=== PATIENT | female | born 1955 | race Caucasian/White ===

== ENCOUNTER 2017-01-02 02:51 | Inpatient (IN) | payer MEDICARE, OTHER ==
[~2017-01-02] VITALS: Ht 162.6 cm; Wt 85.7 kg
[2017-01-02] MEDS ORDERED: MORP15TA3 PO (03:24)
[2017-01-02] MEDS ORDERED: ATORVASTATIN CA80 MG PO (03:24)
[2017-01-02] MEDS ORDERED: BUPR150T15 PO (03:24)
[2017-01-02] MEDS ORDERED: LORA-434 PO (03:24)
[2017-01-02] MEDS ORDERED: INSU100I17 SQ (03:24)
[2017-01-02] MEDS ORDERED: LEVO100T5 PO (03:24)
[2017-01-02] MEDS ORDERED: IPRA4AER INH (03:24)
[2017-01-02] MEDS ORDERED: NEBI10TA3 PO (03:24)
[2017-01-02] MEDS ORDERED: FURO-69 PO (03:24)
[2017-01-02] MEDS ORDERED: XOPENEX HFA15 GM IH (03:24)
[2017-01-02] MEDS ORDERED: DOCU100C28 PO (03:24)
[2017-01-02] MEDS ORDERED: NITR0.4T SL (03:24)
[2017-01-02] MEDS ORDERED: CLOP75TA57 PO (03:24)
[2017-01-02] MEDS ORDERED: PROM25TA10 PO (03:24)
[2017-01-02] MEDS ORDERED: INSU100I13 SQ (03:24)
[2017-01-02] MEDS ORDERED: PANT40TA5 PO (03:24)
[2017-01-02] MEDS ORDERED: FERR-26 PO (03:24)
[2017-01-02] MEDS ORDERED: MAGN400T22 PO (03:24)
[2017-01-02] MEDS ORDERED: METHYL SALICYLATE/MENTHOL TOPICAL OINTMENT 29GM TUBE. TP PRN (03:45)
[2017-01-02] MEDS ORDERED: ACETAMINOPHEN 325 MG TABLET PO PRN (03:45)
[2017-01-02] MEDS ORDERED: MAG HYDROX/AL HYDROX/SIMETH 30 ML ORAL.SUSP PO PRN (03:45)
[2017-01-02 03:50] VITALS: BP 130/52
[2017-01-02] MEDS ORDERED: NON FORMULARY ITEM (Ipratropium/Albuterol Sulfate (Combivent Respimat Inhal) 1 PUFF) INH PRN (04:00)
[2017-01-02] MEDS ORDERED: ALBUTEROL SULFATE 2.5 MG/3 ML NEBU. NEB PRN (04:00)
[2017-01-02] MEDS ORDERED: NITROGLYCERIN SUBLINGUAL 0.4 MG BOTTLE OF 25. SL PRN (04:00)
[2017-01-02] MEDS ORDERED: NON FORMULARY ITEM (Levalbuterol Tartrate (Xopenex Hfa) 2 PUFF) IH PRN (04:00)
[2017-01-02] MEDS: LORazepam 1 MG TABLET PO PRN (04:32)
[2017-01-02] MEDS: LEVOTHYROXINE 100 MCG TABLET PO SCH (06:11)
[2017-01-02 06:33] VITALS: BP 117/48
[2017-01-02 06:59] LABS: AMORPHOUS SEDIMENT,UR PRESENT /HPF; BACTERIA,URINE FEW /HPF (0-FEW); BILIRUBIN,URINE NEG (NEG); CLARITY,URINE CLOUDY; COLOR,URINE YELLOW; GLUCOSE,URINE NEG (NEG); NITRITE,URINE NEG (NEG); RBC,URINE OCC /HPF (0-2); SQUAMOUS EPITHELIAL CELL,UR MANY /LPF; UROBILINOGEN,URINE 0.2 mg/dL (0.2 mg/dL)
[2017-01-02 07:23] LABS: BARBITURATES NEG (NEG); BENZODIAZEPINES NEG (NEG); CANNABINOIDS NEG (NEG); COCAINE NEG (NEG); METHADONE NEG (NEG); OPIATES POS (NEG); PHENCYCLIDINE NEG (NEG)
[2017-01-02 07:24] LABS: AMPHETAMINE/METHAMPHETAMINE NEG (NEG)
[2017-01-02] MEDS: IPRATRPIUM/ALBUTEROL 0.5/2.5MG 3 ML NEBU. NEB SCH ×2 (08:00→18:54)
[2017-01-02] MEDS ORDERED: MORPHINE ER 15 MG TABLET.ER PO SCH (09:00)
[2017-01-02] MEDS: CLOPIDOGREL BISULFATE 75 MG TABLET PO SCH (10:04)
[2017-01-02] MEDS: buPROPion XL 150 MG TAB.ER.24H PO SCH (10:04)
[2017-01-02] MEDS: DOCUSATE SODIUM 100 MG CAPSULE PO SCH ×2 (10:04→20:10)
[2017-01-02] MEDS: PANTOPRAZOLE 40 MG TABLET. PO SCH ×2 (10:04→17:58)
[2017-01-02] MEDS: MAGNESIUM OXIDE 400 MG TABLET PO SCH ×2 (10:04→20:25)
[2017-01-02] MEDS: FERROUS SULFATE 325 MG TABLET PO SCH (10:05)
[2017-01-02] MEDS: INSULIN ASPART 300 UNITS/3 ML INSULN.PEN SQ SCH ×3 (10:07→17:59)
[2017-01-02] MEDS: METOPROLOL TART IMMED RELEASE 50 MG TABLET PO SCH ×2 (10:11→20:11)
[2017-01-02 16:20] VITALS: BP 139/74
--- NOTE | 2017-01-02 20:11 | PDOC ---
Exam Clinton Demential Exam: Clinton Note: Please also refer to the separate dictated note~for this date of service dictated separately.~Patient seen individually. Discussed the patient with Nursing staff reviewed the chart.~Reviewed interim history and current functioning. Reviewed vital signs,~Labs/ Radiology~and current medications noted below. Continue current treatment with the changes noted in the dictated addendum note Assessment: Vital Signs: Vital Signs Date Time Temp Pulse Resp B/P (MAP) Pulse Ox O2 Delivery O2 Flow Rate FiO2 01/02/17 18:58 97 Room Air 01/02/17 16:20 97.4 70 18 139/74 (95) I&O Intake and Output 01/02/17 07:00 Intake Total 200 ml Balance 200 ml Intake Oral 200 ml # Voids 1 # Bowel Movements 1 Labs: Laboratory Tests Test 01/02/17 06:35 Urine Collection Type Unknown Urine Color Yellow Urine Clarity Cloudy Urine pH 6.0 Urine Specific [place] 1.020 Urine Protein 30 mg/dl (NEG-TRACE) Urine Glucose (UA) Neg mg/dL (NEG) Urine Ketones (Stick) Neg mg/dL (NEG) Urine Blood Neg (NEG) Urine Nitrite Neg (NEG) Urine Bilirubin Neg (NEG) Urine Urobilinogen Dipstick 0.2 mg/dL (0.2 mg/dL) Urine Leukocyte Esterase Small (NEG) Urine RBC Occ /HPF (0-2) Urine WBC 5-10 /HPF (0-4) Urine Squamous Epithelial Cells Many /LPF Urine Amorphous Sediment Present /HPF Urine Bacteria Few /HPF (0-FEW) Urine Opiates Screen Pos (NEG) Urine Methadone Screen Neg (NEG) Urine Barbiturates Neg (NEG) Urine Phencyclidine Screen Neg (NEG) Urine Amphetamine/Methamphetamine Neg (NEG) Urine Benzodiazepines Screen Neg (NEG) Urine Cocaine Screen Neg (NEG) Urine Cannabinoids Screen Neg (NEG) Urine Ethyl Alcohol Neg (NEG) Current Medications: Meds: Current Medications Acetaminophen (Tylenol) 650 mg PRN Q6HRS PRN PO MILD PAIN / TEMP; Start at 03:45 Multi-Ingredient Ointment (Analgesic Arnold) 1 urmila PRN QID PRN TP MUSCLE PAIN; Start 01/02/17 at 03:45 Al Hydroxide/Mg Hydroxide (Mylanta Plus Xs) 15 ml PRN AFTMEALHC PRN PO DYSPEPSIA; Start 01/02/17 at 03:45 Magnesium Hydroxide (Milk Of Magnesia) 2,400 mg PRN QHS PRN PO CONSTIPATION; Start 01/02/17 at 03:45 Bupropion HCl (Wellbutrin Xl) 150 mg DAILY PO Last administered on 01/02/17 10 :04; Start 01/02/17 at 09:00 Lorazepam (Ativan) 1 mg PRN BID PRN PO ANXIETY / AGITATION Last administered on 01/02/17 04:32; Start 01/02/17 at 03:45 Clopidogrel Bisulfate (Plavix) 75 mg DAILY PO Last administered on 01/02/17 10 :04; Start 01/02/17 at 09:00 Docusate Sodium (Colace) 100 mg BID PO Last administered on 01/02/17 10:04; Start 01/02/17 at 09:00 Ferrous Sulfate (Feosol) 325 mg DAILY PO Last administered on 01/02/17 10:05; Start 01/02/17 at 09:00 Furosemide (Lasix) 20 mg 3X/WEEK PO ; Start 01/03/17 at 09:00 Insulin Aspart (Novolog) 12 units TIDAC SQ Last administered on 01/02/17 17:59 ; Start 01/02/17 at 07:30 Levothyroxine Sodium (Synthroid) 100 mcg DAILY06 PO Last administered on 06:11; Start 01/02/17 at 06:00 Magnesium Oxide (Magnesium Oxide) 400 mg BID PO Last administered on 01/02/17 10:04; Start 01/02/17 at 09:00 Morphine Sulfate (Ms Contin) 15 mg BID PO Last administered on 01/02/17 10:04 ; Start 01/02/17 at 09:00; Stop 01/02/17 at 18:42; Status DC Nitroglycerin (Nitrostat) 0.4 mg PRN 1X PRN SL CHEST PAIN; Start 01/02/17 at 04 :00 Pantoprazole Sodium (Protonix) 40 mg BIDBFRMEAL PO Last administered on 17:58; Start 01/02/17 at 07:30 Promethazine HCl (Phenergan) 25 mg PRN BID PRN PO NAUSEA/VOMITING; Start at 04:00 Atorvastatin Calcium (Lipitor) 80 mg QHS PO ; Start 01/02/17 at 21:00 Insulin Detemir (Levemir) 28 units QHS SQ ; Start 01/02/17 at 21:00 Non-Formulary Medication 1 puff PRN BID PRN INH SHORTNESS OF BREATH; Start at 04:00; Status UNV Non-Formulary Medication 2 puff PRN TID PRN IH SHORTNESS OF BREATH; Start 01/02 at 04:00; Status UNV Metoprolol Tartrate (Lopressor) 50 mg BID PO Last administered on 01/02/17 10: 11; Start 01/02/17 at 09:00 Albuterol/ Ipratropium (Duoneb) 3 ml RTBID NEB Last administered on 01/02/17 18:54; Start 01/02/17 at 08:00 Albuterol Sulfate (Ventolin) 2.5 mg PRN Q6HRS PRN NEB SHORTNESS OF BREATH; Start 01/02/17 at 04:00 Morphine Sulfate (Ms Contin) 15 mg HS PO ; Start 01/02/17 at 21:00 Active Scripts Active Reported Novolog Flexpen (Insulin Aspart) 100 Unit/1 Ml Insuln.pen 12 Unit SQ TIDAC Ativan (Lorazepam) 1 Mg Tablet 1 Mg PO PRN BID PRN Wellbutrin Xl (Bupropion Hcl) 150 Mg Tab.er.24h 150 Mg PO DAILY Promethazine Hcl 25 Mg Tablet 25 Mg PO PRN BID PRN Bystolic (Nebivolol Hcl) 10 Mg Tablet 10 Mg PO DAILY Atorvastatin Calcium 80 Mg Tablet 80 Mg PO QHS Pantoprazole Sodium 40 Mg Tablet.dr 40 Mg PO BIDBFRMEAL Plavix (Clopidogrel Bisulfate) 75 Mg Tablet 75 Mg PO DAILY Levothyroxine Sodium 100 Mcg Tablet 100 Mcg PO DAILY06 Docusate Sodium 100 Mg Capsule 100 Mg PO BID Nitrostat (Nitroglycerin) 0.4 Mg Tab.subl 0.4 Mg SL PRN 1X PRN Ferrous Sulfate 325 Mg Tablet 325 Mg PO DAILY Combivent Respimat Inhal (Ipratropium/Albuterol Sulfate) 4 Gm Aer.w.adap 1 Puff INH PRN BID PRN Xopenex Hfa (Levalbuterol Tartrate) 15 Gm Hfa.aer.ad 2 Puff IH PRN TID PRN Mag-Oxide (Magnesium Oxide) 400 Mg Tablet 400 Mg PO BID Lantus Solostar (Insulin Glargine,Hum.rec.anlog) 100 Unit/1 Ml Insuln.pen 28 Unit SQ QHS MERVIN CEE MD January 02, 2017 20:11
[2017-01-02] MEDS: MORPHINE ER 15 MG TABLET.ER PO SCH (20:22)
[2017-01-02] MEDS: ATORVASTATIN CALCIUM 20 MG TABLET PO SCH (20:22)
[2017-01-02] MEDS: INSULIN DETEMIR 300 UNITS/3 ML INSULN.PEN. SQ SCH (21:01)
--- NOTE | 2017-01-02 23:23 | HP ---
ADMIT DATE: 01/02/2017 IDENTIFYING DATA: The patient is a 61-year-old female referred to us from the [facility] Emergency Room on account of increasing hallucinations, incoherence, delusions after the patient walked into the living room, naked, mumbling incoherently. She has been in outpatient psychiatric treatment at [facility] and has failed this. She has been using MS Contin 50 mg twice a day and at one point was using up to 90 mg a day and there is a question whether this is contributing to her change in mental status. CHIEF COMPLAINT: "I need to come off my morphine. I have severe arthritis pain." HISTORY OF PRESENT ILLNESS: The patient was initially presented to me from the Emergency Room at [facility] by the patient's daughter, Shahrzad, who is in fact the nurse on the unit. The patient presented to the ER, quite confused, hallucinating, delusional. CT head was unremarkable. Rest of the labs were unremarkable and nothing to account for the change in mental status. There is a question raised of dementia, but in fact at the time of my evaluation today, the patient is very cognitively intact and coherent. She has been using fairly high dosages of morphine to control her arthritic pain, however, and it appears this has been causing psychotic symptoms. No clear suicidal or homicidal ideation. She does have a history of depression and has been on Wellbutrin for some time and did very poorly on Cymbalta and had been on other SSRIs as well at certain points. PAST PSYCHIATRIC HISTORY: As above. MEDICAL HISTORY: Pain secondary to chronic arthritis, coronary artery disease, hypertension, GERD, fibromyalgia, carpal tunnel syndrome, neuropathy, status post coronary artery bypass graft, status post [place]. Hypothyroidism. CODE STATUS: DNR. ALLERGIES: CEPHALOSPORINS, TIDE LAUDRY SOAP, BUTORPHANOL, DIAZEPAM, CYMBALTA, NEURONTIN, IODINE, LATEX, SHELLFISH. FAMILY HISTORY: Positive for bipolar disorder in 2 of her adult children. SOCIAL HISTORY: The patient lives at home alone. She does not drive due to a reported diagnosis of seizure disorder and her general health. No alcohol, drug abuse, physical, sexual or elder abuse history noted. She is not known to be perfect ____. MENTAL STATUS EXAM: The patient was seen individually evening of 01/02/2017. She is oriented reasonably well. Speech coherent. Abstraction fair, computation somewhat impaired, language function intact, attention span short. Mood and affect somewhat anxious. No active suicidal or homicidal ideation. CURRENT PSYCHOTROPICS: Wellbutrin-XL 150 mg a day, Ativan 1 mg b.i.d. p.r.n. She is on MS Contin 15 mg b.i.d., which was changed per Dr. Oden to 15 mg a day. PHYSICAL EXAMINATION: VITAL SIGNS: Temperature 97.4, pulse 70, BP 139/74. REVIEW OF SYSTEMS: No CV, , pulmonary, eye system symptoms on review. IMPRESSION: Major depressive disorder, delirium secondary to general medical condition/usage of MS Contin; anxiety disorder, unspecified; cognitive disorder, unspecified. Rest of diagnoses as above. PLAN: Admit to the Geropsychiatry unit at [facility]. I will see the patient daily individually from a psychiatric standpoint. Medical followup per Dr. Castro/Dr. Blankenship. Continue the patient on current psychotropics, reduce the MS Contin further as determined per Dr. Oden/Dr Blankenship/Dr Castro. May consider changing Wellbutrin to Savella for an alternate antidepressants, but we will see how she does initially with the taper of the MS Contin. MERVIN CEE MD DR: CHASITY/micki JOB#: [id number] / [id number]
[2017-01-03] MEDS: LORazepam 1 MG TABLET PO PRN ×2 (00:15→02:45)
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
[2017-01-03] MEDS: LEVOTHYROXINE 100 MCG TABLET PO SCH (06:13)
[2017-01-03 06:36] VITALS: BP 123/58
[2017-01-03 06:39] LABS: BASO % 0 % (0-3); EOS # 0.2 x10^3/uL (0.0-0.7); EOS % 3 % (0-3); HEMATOCRIT 28.9 % (36.0-47.0); HEMOGLOBIN 9.6 g/dL (12.0-15.5); LYMPH # 2.2 x10^3/uL (1.0-4.8); LYMPH % 32 % (24-48); MEAN CORPUSCULAR HEMOGLOBIN 30 pg (25-35); MEAN CORPUSCULAR HGB CONC 33 g/dL (31-37); MEAN CORPUSCULAR VOLUME 90 fL (79-100); MONO # 0.7 x10^3/uL (0.0-1.1); MONO % 11 % (0-9); NEUT # 3.6 x10^3uL (1.8-7.7); NEUT % 54 % (31-73); PLATELET COUNT 212 x10^3/uL (140-400); RED BLOOD COUNT 3.21 x10^6/uL (3.50-5.40); RED CELL DISTRIBUTION WIDTH 14.2 % (11.5-14.5); WHITE BLOOD COUNT 6.7 x10^3/uL (4.0-11.0)
[2017-01-03 06:55] LABS: ALBUMIN 2.7 g/dL (3.4-5.0); ALBUMIN/GLOBULIN RATIO 0.7 (1.0-1.7); CALCIUM 8.6 mg/dL (8.5-10.1); CREATININE 1.2 mg/dL (0.6-1.0); GFR 45.8; MAGNESIUM 1.8 mg/dL (1.8-2.4); POTASSIUM 3.7 mmol/L (3.5-5.1); TOTAL BILIRUBIN 0.4 mg/dL (0.2-1.0); TOTAL PROTEIN 6.6 g/dL (6.4-8.2)
[2017-01-03] MEDS ORDERED: cloNIDine HCL 0.1 MG TABLET PO PRN (07:30)
[2017-01-03] MEDS: CLOPIDOGREL BISULFATE 75 MG TABLET PO SCH (08:37)
[2017-01-03] MEDS: MAGNESIUM OXIDE 400 MG TABLET PO SCH ×2 (08:37→19:25)
[2017-01-03] MEDS: PANTOPRAZOLE 40 MG TABLET. PO SCH ×2 (08:37→17:15)
[2017-01-03] MEDS: buPROPion XL 150 MG TAB.ER.24H PO SCH (08:37)
[2017-01-03] MEDS: DOCUSATE SODIUM 100 MG CAPSULE PO SCH ×2 (08:37→19:24)
[2017-01-03] MEDS: FERROUS SULFATE 325 MG TABLET PO SCH (08:37)
[2017-01-03] MEDS: METOPROLOL TART IMMED RELEASE 50 MG TABLET PO SCH ×2 (08:39→19:25)
[2017-01-03] MEDS: FUROSEMIDE 20 MG TABLET PO SCH (08:39)
[2017-01-03] MEDS: INSULIN ASPART 300 UNITS/3 ML INSULN.PEN SQ SCH ×4 (08:42→17:20)
[2017-01-03] MEDS: IPRATRPIUM/ALBUTEROL 0.5/2.5MG 3 ML NEBU. NEB SCH ×2 (11:00→20:00)
[2017-01-03 13:50] LABS: THYROID STIM HORMONE (TSH) 6.49 uIU/mL (0.358-3.740)
[2017-01-03 16:13] VITALS: BP 163/61
[2017-01-03 17:10] LABS: T3 TOTAL 66 ng/dL (71-180); THYROXINE 5.7 ug/dL (4.5-12.0)
[2017-01-03] MEDS: ATORVASTATIN CALCIUM 20 MG TABLET PO SCH (19:24)
[2017-01-03] MEDS: MORPHINE ER 15 MG TABLET.ER PO SCH (19:26)
[2017-01-03] MEDS: INSULIN DETEMIR 300 UNITS/3 ML INSULN.PEN. SQ SCH (19:27)
--- NOTE | 2017-01-03 20:41 | ACF ---
Admission Criteria Forms PSYCHIATRIC DISORDERS Clinical Indications for Inpatient Care (Place 'X' for any and all applicable criteria): Ongoing inpatient care may be needed for ANY ONE of the following(1)(2)(3)(4)(6) (7)(8): [ ]I. Danger to self or others not manageable at lower level of care. [ ]II. Grave disability (eg, inability to perform self care necessary at lower level of care) [ ]III. Agitation or inappropriate behavior interfering with care for primary condition (eg, attempting to discontinue lines or drains prematurely, unable to cooperate with respiratory care) [X ]IV. Severe disability or disorder indicated by ALL of the following: [X ]a) Severe behavioral health disorder-related symptoms or condition indicated by ANY ONE of the following: [ ]i) Severe problem with cognition, memory, judgment, or impulse control [X ]ii) Severe clinical manifestations (eg, hallucinations , delusions, other acute psychotic symptoms, michelle, extreme agitation or anxiety) [X ]b) Patient management at lower level of care is not feasible until acute intervention or modification is initiated. Extended stay beyond goal length of stay for the primary condition may be indicated when ANY ONE of the following is present: (1)(2)(3)(4): [ ]a) Patient is a danger to self or others and not manageable at lower level of care. [ ]b) Behavior crisis management, including physical or chemical restraints, is required and is not available at a lower level of care. [ ]c) Behavioral symptoms (e.g., agitation, somnolence, inappropriate behavior) are present, and are not manageable at a lower level of care. [ ]d) Patient cannot understand follow-up treatment and crisis plan. [ ]e) Provider and supports are not sufficiently available at lower level of care. [ ]f) Patient cannot participate (e.g., verify absence of plan for harm) and is in needed of monitoring. The original [facility] [employer] content created by [facility] [employer] has been revised. The portions of the content which have been revised are identified through the use of italic text or in bold, and [facility] has neither reviewed nor approved the modified material. All other unmodified content is copyright [facility]. Please see references footnoted in the original [facility] edition 2016 Admission Criteria Met?: Yes NAYELI BAUM January 03, 2017 20:41
--- NOTE | 2017-01-03 21:07 | PDOC ---
Exam Clinton Demential Exam: Clinton Note: Please also refer to the separate dictated note~for this date of service dictated separately.~Patient seen individually. Discussed the patient with Nursing staff reviewed the chart.~Reviewed interim history and current functioning. Reviewed vital signs,~Labs/ Radiology~and current medications noted below. Continue current treatment with the changes noted in the dictated addendum note Assessment: Vital Signs: Vital Signs Date Time Temp Pulse Resp B/P (MAP) Pulse Ox O2 Delivery O2 Flow Rate FiO2 01/03/17 19:26 Room Air 01/03/17 19:25 61 163/61 01/03/17 16:13 98.0 16 95 I&O Intake and Output 01/03/17 07:00 Intake Total 1540 ml Balance 1540 ml Intake Oral 1540 ml Labs: Laboratory Tests Test 01/03/17 06:22 01/03/17 07:15 01/03/17 11:21 01/03/17 16:51 White Blood Count 6.7 x10^3/uL (4.0-11.0) Red Blood Count 3.21 x10^6/uL (3.50-5.40) L Hemoglobin 9.6 g/dL (12.0-15.5) L Hematocrit 28.9 % (36.0-47.0) L Mean Corpuscular Volume 90 fL (79-100) Mean Corpuscular Hemoglobin 30 pg (25-35) Mean Corpuscular Hemoglobin Concent 33 g/dL (31-37) Red Cell Distribution Width 14.2 % (11.5-14.5) Platelet Count 212 x10^3/uL (140-400) Neutrophils (%) (Auto) 54 % (31-73) Lymphocytes (%) (Auto) 32 % (24-48) Monocytes (%) (Auto) 11 % (0-9) H Eosinophils (%) (Auto) 3 % (0-3) Basophils (%) (Auto) 0 % (0-3) Neutrophils # (Auto) 3.6 x10^3uL (1.8-7.7) Lymphocytes # (Auto) 2.2 x10^3/uL (1.0-4.8) Monocytes # (Auto) 0.7 x10^3/uL (0.0-1.1) Eosinophils # (Auto) 0.2 x10^3/uL (0.0-0.7) Basophils # (Auto) 0.0 x10^3/uL (0.0-0.2) Sodium Level 143 mmol/L (136-145) Potassium Level 3.7 mmol/L (3.5-5.1) Chloride Level 108 mmol/L (98-107) H Carbon Dioxide Level 24 mmol/L (21-32) Anion Gap 11 (6-14) Blood Urea Nitrogen 20 mg/dL (7-20) Creatinine 1.2 mg/dL (0.6-1.0) H Estimated GFR (Cockcroft-Gault) 45.8 BUN/Creatinine Ratio 17 (6-20) Glucose Level 94 mg/dL (70-99) Calcium Level 8.6 mg/dL (8.5-10.1) Magnesium Level 1.8 mg/dL (1.8-2.4) Iron Level 23 ug/dL (50-170) L Total Iron Binding Capacity 328 ug/dL (250-450) Iron Saturation 7 % (15-34) L Total Bilirubin 0.4 mg/dL (0.2-1.0) Aspartate Amino Transferase (AST) 22 U/L (15-37) Alanine Aminotransferase (ALT) 30 U/L (14-59) Alkaline Phosphatase 123 U/L (46-116) H Total Protein 6.6 g/dL (6.4-8.2) Albumin 2.7 g/dL (3.4-5.0) L Albumin/Globulin Ratio 0.7 (1.0-1.7) L Triglycerides Level 93 mg/dL (0-150) Cholesterol Level 70 mg/dL (0-200) LDL Cholesterol, Calculated 25 mg/dL (0-100) VLDL Cholesterol, Calculated 18 mg/dL (0-40) Non-HDL Cholesterol Calculated 43 mg/dL (0-129) HDL Cholesterol 27 mg/dL (40-60) L Cholesterol/HDL Ratio 2.0 Vitamin B12 Level 594 pg/mL (247-911) 25-Hydroxy Vitamin D Total Pending Thyroid Stimulating Hormone (TSH) 6.490 uIU/mL (0.358-3.740) Thyroxine (T4) 5.7 ug/dL (4.5-12.0) Total Triiodothyronine (TT3) 66 ng/dL (71-180) L RPR Titer Additional Testing Pending Glucose (Fingerstick) 93 mg/dL (70-99) 189 mg/dL (70-99) H 137 mg/dL (70-99) H Test 01/03/17 19:22 Glucose (Fingerstick) 216 mg/dL (70-99) H Current Medications: Meds: Current Medications Acetaminophen (Tylenol) 650 mg PRN Q6HRS PRN PO MILD PAIN / TEMP; Start at 03:45 Multi-Ingredient Ointment (Analgesic Arjay) 1 urmila PRN QID PRN TP MUSCLE PAIN; Start 01/02/17 at 03:45 Al Hydroxide/Mg Hydroxide (Mylanta Plus Xs) 15 ml PRN AFTMEALHC PRN PO DYSPEPSIA; Start 01/02/17 at 03:45 Magnesium Hydroxide (Milk Of Magnesia) 2,400 mg PRN QHS PRN PO CONSTIPATION; Start 01/02/17 at 03:45 Bupropion HCl (Wellbutrin Xl) 150 mg DAILY PO Last administered on 01/03/17 08 :37; Start 01/02/17 at 09:00 Lorazepam (Ativan) 1 mg PRN BID PRN PO ANXIETY / AGITATION Last administered on 01/03/17 02:45; Start 01/02/17 at 03:45 Clopidogrel Bisulfate (Plavix) 75 mg DAILY PO Last administered on 01/03/17 08 :37; Start 01/02/17 at 09:00 Docusate Sodium (Colace) 100 mg BID PO Last administered on 01/03/17 19:24; Start 01/02/17 at 09:00 Ferrous Sulfate (Feosol) 325 mg DAILY PO Last administered on 01/03/17 08:37; Start 01/02/17 at 09:00 Furosemide (Lasix) 20 mg 3X/WEEK PO Last administered on 01/03/17 08:39; Start 01/03/17 at 09:00 Insulin Aspart (Novolog) 12 units TIDAC SQ Last administered on 01/03/17 17:20 ; Start 01/02/17 at 07:30 Levothyroxine Sodium (Synthroid) 100 mcg DAILY06 PO Last administered on 06:13; Start 01/02/17 at 06:00 Magnesium Oxide (Magnesium Oxide) 400 mg BID PO Last administered on 01/03/17 19:25; Start 01/02/17 at 09:00 Morphine Sulfate (Ms Contin) 15 mg BID PO Last administered on 01/02/17 10:04 ; Start 01/02/17 at 09:00; Stop 01/02/17 at 18:42; Status DC Nitroglycerin (Nitrostat) 0.4 mg PRN 1X PRN SL CHEST PAIN; Start 01/02/17 at 04 :00 Pantoprazole Sodium (Protonix) 40 mg BIDBFRMEAL PO Last administered on 17:15; Start 01/02/17 at 07:30 Promethazine HCl (Phenergan) 25 mg PRN BID PRN PO NAUSEA/VOMITING; Start at 04:00 Atorvastatin Calcium (Lipitor) 80 mg QHS PO Last administered on 01/03/17 19: 24; Start 01/02/17 at 21:00 Insulin Detemir (Levemir) 28 units QHS SQ Last administered on 01/03/17 19:27 ; Start 01/02/17 at 21:00 Non-Formulary Medication 1 puff PRN BID PRN INH SHORTNESS OF BREATH; Start at 04:00; Status UNV Non-Formulary Medication 2 puff PRN TID PRN IH SHORTNESS OF BREATH; Start 01/02 at 04:00; Status UNV Metoprolol Tartrate (Lopressor) 50 mg BID PO Last administered on 01/03/17 19: 25; Start 01/02/17 at 09:00 Albuterol/ Ipratropium (Duoneb) 3 ml RTBID NEB Last administered on 01/03/17 11:00; Start 01/02/17 at 08:00 Albuterol Sulfate (Ventolin) 2.5 mg PRN Q6HRS PRN NEB SHORTNESS OF BREATH; Start 01/02/17 at 04:00 Morphine Sulfate (Ms Contin) 15 mg HS PO Last administered on 01/03/17 19:26; Start 01/02/17 at 21:00 Clonidine HCl (Catapres) 0.05 mg PRN DAILY PRN PO WITHDRAWAL; Start 01/03/17 at 07:30 Active Scripts Active Reported Novolog Flexpen (Insulin Aspart) 100 Unit/1 Ml Insuln.pen 12 Unit SQ TIDAC Ativan (Lorazepam) 1 Mg Tablet 1 Mg PO PRN BID PRN Wellbutrin Xl (Bupropion Hcl) 150 Mg Tab.er.24h 150 Mg PO DAILY Promethazine Hcl 25 Mg Tablet 25 Mg PO PRN BID PRN Bystolic (Nebivolol Hcl) 10 Mg Tablet 10 Mg PO DAILY Atorvastatin Calcium 80 Mg Tablet 80 Mg PO QHS Pantoprazole Sodium 40 Mg Tablet.dr 40 Mg PO BIDBFRMEAL Plavix (Clopidogrel Bisulfate) 75 Mg Tablet 75 Mg PO DAILY Levothyroxine Sodium 100 Mcg Tablet 100 Mcg PO DAILY06 Docusate Sodium 100 Mg Capsule 100 Mg PO BID Nitrostat (Nitroglycerin) 0.4 Mg Tab.subl 0.4 Mg SL PRN 1X PRN Ferrous Sulfate 325 Mg Tablet 325 Mg PO DAILY Combivent Respimat Inhal (Ipratropium/Albuterol Sulfate) 4 Gm Aer.w.adap 1 Puff INH PRN BID PRN Xopenex Hfa (Levalbuterol Tartrate) 15 Gm Hfa.aer.ad 2 Puff IH PRN TID PRN Mag-Oxide (Magnesium Oxide) 400 Mg Tablet 400 Mg PO BID Lantus Solostar (Insulin Glargine,Hum.rec.anlog) 100 Unit/1 Ml Insuln.pen 28 Unit SQ QHS MERVIN CEE MD January 03, 2017 21:07
[2017-01-04 05:10] LABS: HEMOGLOBIN A1C 8.9 % (4.8-5.6)
[2017-01-04] MEDS: LEVOTHYROXINE 100 MCG TABLET PO SCH (05:43)
[2017-01-04 06:03] VITALS: BP 138/61
[2017-01-04] MEDS: INSULIN ASPART 300 UNITS/3 ML INSULN.PEN SQ SCH ×3 (07:30→17:11)
[2017-01-04] MEDS: IPRATRPIUM/ALBUTEROL 0.5/2.5MG 3 ML NEBU. NEB SCH (08:00)
[2017-01-04] MEDS: PANTOPRAZOLE 40 MG TABLET. PO SCH ×2 (09:03→17:03)
[2017-01-04] MEDS: METOPROLOL TART IMMED RELEASE 50 MG TABLET PO SCH ×2 (09:03→19:54)
[2017-01-04] MEDS: FERROUS SULFATE 325 MG TABLET PO SCH (09:03)
[2017-01-04] MEDS: DOCUSATE SODIUM 100 MG CAPSULE PO SCH ×2 (09:03→19:52)
[2017-01-04] MEDS: CLOPIDOGREL BISULFATE 75 MG TABLET PO SCH (09:03)
[2017-01-04] MEDS: buPROPion XL 150 MG TAB.ER.24H PO SCH (09:03)
[2017-01-04] MEDS: MAGNESIUM OXIDE 400 MG TABLET PO SCH ×2 (09:03→19:52)
[2017-01-04] MEDS ORDERED: IPRATRPIUM/ALBUTEROL 0.5/2.5MG 3 ML NEBU. NEB PRN (10:30)
[2017-01-04 15:59] VITALS: BP 162/72
[2017-01-04] MEDS: LORazepam 0.5 MG TABLET PO PRN (18:57)
[2017-01-04] MEDS: MORPHINE ER 15 MG TABLET.ER PO SCH (19:54)
[2017-01-04] MEDS: ATORVASTATIN CALCIUM 20 MG TABLET PO SCH (19:55)
[2017-01-04] MEDS: traZODone 50 MG TABLET. PO SCH (19:55)
[2017-01-04] MEDS: INSULIN DETEMIR 300 UNITS/3 ML INSULN.PEN. SQ SCH (19:58)
--- NOTE | 2017-01-04 21:09 | PDOC ---
Exam Clinton Demential Exam: Clinton Note: Please also refer to the separate dictated note~for this date of service dictated separately.~Patient seen individually. Discussed the patient with Nursing staff reviewed the chart.~Reviewed interim history and current functioning. Reviewed vital signs,~Labs/ Radiology~and current medications noted below. Continue current treatment with the changes noted in the dictated addendum note Assessment: Vital Signs: Vital Signs Date Time Temp Pulse Resp B/P (MAP) Pulse Ox O2 Delivery O2 Flow Rate FiO2 01/04/17 19:54 94 Room Air 01/04/17 19:54 61 172/62 01/04/17 15:59 98.5 20 I&O Intake and Output 01/04/17 07:00 Intake Total 960 ml Balance 960 ml Intake Oral 960 ml Labs: Laboratory Tests Test 01/04/17 07:19 01/04/17 11:17 01/04/17 16:54 01/04/17 19:15 Glucose (Fingerstick) 95 mg/dL (70-99) 215 mg/dL (70-99) H 159 mg/dL (70-99) H 191 mg/dL (70-99) H Current Medications: Meds: Current Medications Acetaminophen (Tylenol) 650 mg PRN Q6HRS PRN PO MILD PAIN / TEMP; Start at 03:45 Multi-Ingredient Ointment (Analgesic [place]) 1 urmila PRN QID PRN TP MUSCLE PAIN; Start 01/02/17 at 03:45 Al Hydroxide/Mg Hydroxide (Mylanta Plus Xs) 15 ml PRN AFTMEALHC PRN PO DYSPEPSIA; Start 01/02/17 at 03:45 Magnesium Hydroxide (Milk Of Magnesia) 2,400 mg PRN QHS PRN PO CONSTIPATION; Start 01/02/17 at 03:45 Bupropion HCl (Wellbutrin Xl) 150 mg DAILY PO Last administered on 01/04/17 09 :03; Start 01/02/17 at 09:00 Lorazepam (Ativan) 1 mg PRN BID PRN PO ANXIETY / AGITATION Last administered on 01/03/17 02:45; Start 01/02/17 at 03:45; Stop 01/04/17 at 18:14; Status DC Clopidogrel Bisulfate (Plavix) 75 mg DAILY PO Last administered on 01/04/17 09 :03; Start 01/02/17 at 09:00 Docusate Sodium (Colace) 100 mg BID PO Last administered on 01/04/17 19:52; Start 01/02/17 at 09:00 Ferrous Sulfate (Feosol) 325 mg DAILY PO Last administered on 01/04/17 09:03; Start 01/02/17 at 09:00 Furosemide (Lasix) 20 mg 3X/WEEK PO Last administered on 01/03/17 08:39; Start 01/03/17 at 09:00 Insulin Aspart (Novolog) 12 units TIDAC SQ Last administered on 01/04/17 17:11 ; Start 01/02/17 at 07:30 Levothyroxine Sodium (Synthroid) 100 mcg DAILY06 PO Last administered on 05:43; Start 01/02/17 at 06:00 Magnesium Oxide (Magnesium Oxide) 400 mg BID PO Last administered on 01/04/17 19:52; Start 01/02/17 at 09:00 Morphine Sulfate (Ms Contin) 15 mg BID PO Last administered on 01/02/17 10:04 ; Start 01/02/17 at 09:00; Stop 01/02/17 at 18:42; Status DC Nitroglycerin (Nitrostat) 0.4 mg PRN 1X PRN SL CHEST PAIN; Start 01/02/17 at 04 :00 Pantoprazole Sodium (Protonix) 40 mg BIDBFRMEAL PO Last administered on 17:03; Start 01/02/17 at 07:30 Promethazine HCl (Phenergan) 25 mg PRN BID PRN PO NAUSEA/VOMITING; Start at 04:00 Atorvastatin Calcium (Lipitor) 80 mg QHS PO Last administered on 01/04/17 19: 55; Start 01/02/17 at 21:00 Insulin Detemir (Levemir) 28 units QHS SQ Last administered on 01/04/17 19:58 ; Start 01/02/17 at 21:00 Non-Formulary Medication 1 puff PRN BID PRN INH SHORTNESS OF BREATH; Start at 04:00; Status UNV Non-Formulary Medication 2 puff PRN TID PRN IH SHORTNESS OF BREATH; Start 01/02 at 04:00; Status UNV Metoprolol Tartrate (Lopressor) 50 mg BID PO Last administered on 01/04/17 19: 54; Start 01/02/17 at 09:00 Albuterol/ Ipratropium (Duoneb) 3 ml RTBID NEB Last administered on 01/03/17 11:00; Start 01/02/17 at 08:00; Stop 01/04/17 at 10:21; Status DC Albuterol Sulfate (Ventolin) 2.5 mg PRN Q6HRS PRN NEB SHORTNESS OF BREATH; Start 01/02/17 at 04:00 Morphine Sulfate (Ms Contin) 15 mg HS PO Last administered on 01/04/17 19:54; Start 01/02/17 at 21:00 Clonidine HCl (Catapres) 0.05 mg PRN DAILY PRN PO WITHDRAWAL; Start 01/03/17 at 07:30 Albuterol/ Ipratropium (Duoneb) 3 ml PRN BID PRN NEB WHEEZING; Start 01/04/17 at 10:30 Lorazepam (Ativan) 0.5 mg PRN BID PRN PO ANXIETY / AGITATION Last administered on 01/04/17 18:57; Start 01/04/17 at 18:00 Trazodone HCl (Desyrel) 25 mg QHS PO Last administered on 01/04/17 19:55; Start 01/04/17 at 21:00 Active Scripts Active Reported Novolog Flexpen (Insulin Aspart) 100 Unit/1 Ml Insuln.pen 12 Unit SQ TIDAC Ativan (Lorazepam) 1 Mg Tablet 1 Mg PO PRN BID PRN Wellbutrin Xl (Bupropion Hcl) 150 Mg Tab.er.24h 150 Mg PO DAILY Promethazine Hcl 25 Mg Tablet 25 Mg PO PRN BID PRN Bystolic (Nebivolol Hcl) 10 Mg Tablet 10 Mg PO DAILY Atorvastatin Calcium 80 Mg Tablet 80 Mg PO QHS Pantoprazole Sodium 40 Mg Tablet.dr 40 Mg PO BIDBFRMEAL Plavix (Clopidogrel Bisulfate) 75 Mg Tablet 75 Mg PO DAILY Levothyroxine Sodium 100 Mcg Tablet 100 Mcg PO DAILY06 Docusate Sodium 100 Mg Capsule 100 Mg PO BID Nitrostat (Nitroglycerin) 0.4 Mg Tab.subl 0.4 Mg SL PRN 1X PRN Ferrous Sulfate 325 Mg Tablet 325 Mg PO DAILY Combivent Respimat Inhal (Ipratropium/Albuterol Sulfate) 4 Gm Aer.w.adap 1 Puff INH PRN BID PRN Xopenex Hfa (Levalbuterol Tartrate) 15 Gm Hfa.aer.ad 2 Puff IH PRN TID PRN Mag-Oxide (Magnesium Oxide) 400 Mg Tablet 400 Mg PO BID Lantus Solostar (Insulin Glargine,Hum.rec.anlog) 100 Unit/1 Ml Insuln.pen 28 Unit SQ QHS MERVIN CEE MD January 04, 2017 21:09
--- NOTE | 2017-01-05 01:16 | PN ---
DATE: 01/03/2017 PSYCHIATRIC PROGRESS NOTE This is late entry for 01/03/2017, covers elements not covered in my initial note. SUBJECTIVE: Overall, the patient is doing better. Her MS Contin has been reduced and I will leave it to Dr. Castro/Dr. Blankenship for further reduction and discontinuation. She remains on clonidine p.r.n. if narcotic withdrawal symptoms are evident. Labs are unremarkable. Daughter had given further history, wondering if the patient may have a seizure disorder since at times she has been quite disorganized, taking her clothes off, driving different places, not remembering where she went. I will defer this to Dr. Rodriguez. MENTAL STATUS EXAMINATION: I met with the patient in her room. She is well oriented. Speech coherent, abstraction fair, computation somewhat impaired. Language function intact. Attention span short. Mood and affect showing improvement. REVIEW OF SYSTEMS: No CV, , pulmonary, eye system symptoms on review. She still has some pain complaints, but has done poorly, reportedly on Cymbalta in the past. LABORATORY DATA: Reviewed. IMPRESSION: Unchanged from initial note. Major depressive disorder, recurrent; anxiety disorder, unspecified, rule out seizure disorder, narcotic abuse being tapered. PLAN: Continue current psychotropics, Wellbutrin, clonidine p.r.n., Ativan p.r.n. MAN Pura CEE MD DR: CHASITY/micki JOB#: [id number] / [id number]
[2017-01-05] MEDS: LEVOTHYROXINE 100 MCG TABLET PO SCH (05:43)
[2017-01-05 06:20] VITALS: BP 129/65
[2017-01-05] MEDS: INSULIN ASPART 300 UNITS/3 ML INSULN.PEN SQ SCH ×3 (07:30→16:52)
[2017-01-05] MEDS: PROMETHAZINE 25 MG TABLET. PO PRN (08:00)
[2017-01-05] MEDS: CLOPIDOGREL BISULFATE 75 MG TABLET PO SCH (10:14)
[2017-01-05] MEDS: PANTOPRAZOLE 40 MG TABLET. PO SCH ×2 (10:14→16:50)
[2017-01-05] MEDS: DOCUSATE SODIUM 100 MG CAPSULE PO SCH ×2 (10:14→19:47)
[2017-01-05] MEDS: buPROPion XL 150 MG TAB.ER.24H PO SCH (10:14)
[2017-01-05] MEDS: FERROUS SULFATE 325 MG TABLET PO SCH (10:15)
[2017-01-05] MEDS: MAGNESIUM OXIDE 400 MG TABLET PO SCH ×2 (10:15→19:48)
[2017-01-05] MEDS: METOPROLOL TART IMMED RELEASE 50 MG TABLET PO SCH ×2 (10:15→19:48)
[2017-01-05] MEDS: FUROSEMIDE 20 MG TABLET PO SCH (10:16)
[2017-01-05 16:11] VITALS: BP 154/74
[2017-01-05] MEDS: LORazepam 0.5 MG TABLET PO PRN (17:35)
[2017-01-05] MEDS: ATORVASTATIN CALCIUM 20 MG TABLET PO SCH (19:47)
[2017-01-05] MEDS: traZODone 50 MG TABLET. PO SCH (19:47)
[2017-01-05] MEDS: MORPHINE ER 15 MG TABLET.ER PO SCH (19:50)
[2017-01-05] MEDS: INSULIN DETEMIR 300 UNITS/3 ML INSULN.PEN. SQ SCH (19:51)
--- NOTE | 2017-01-05 20:28 | PN ---
DATE: 01/04/2017 PSYCHIATRIC PROGRESS NOTE This is late entry of 01/04/2017, covers elements not covered in my initial note. SUBJECTIVE: Overall, per nursing report, the patient has been fairly cooperative. Reportedly, does well with trazodone at night for insomnia at home and we will restart this 25 mg at bedtime p.r.n. MS Contin has been reduced to 15 mg a day and reportedly this was the goal by the primary care physician outpatient as well. Neurology consult waited with Dr. Rodriguez. REVIEW OF SYSTEMS: No CV, , pulmonary, eye system symptoms on review. She does have the chronic pain, but less distressed with this. I met with her in her room. MENTAL STATUS EXAMINATION: Reasonably oriented. Speech coherent, abstraction fair, computation reasonable, language function intact. Mood and affect is improved and stable. LABORATORY DATA: Reviewed. IMPRESSION: Major depressive disorder, anxiety disorder, unspecified; narcotic withdrawal. PLAN: Reduce Ativan to 0.5 b.i.d. p.r.n. anxiety that she was taking at home, continue Wellbutrin XL 150 mg a day, clonidine p.r.n. for opiate withdrawal symptoms, trazodone 25 mg at bedtime p.r.n., adjust further as clinically indicated. MERVIN CEE MD DR: CHASITY/micki JOB#: [id number] / [id number]
--- NOTE | 2017-01-05 20:40 | PDOC ---
Exam Clinton Demential Exam: Clinton Note: Please also refer to the separate dictated note~for this date of service dictated separately.~Patient seen individually. Discussed the patient with Nursing staff reviewed the chart.~Reviewed interim history and current functioning. Reviewed vital signs,~Labs/ Radiology~and current medications noted below. Continue current treatment with the changes noted in the dictated addendum note Assessment: Vital Signs: Vital Signs Date Time Temp Pulse Resp B/P (MAP) Pulse Ox O2 Delivery O2 Flow Rate FiO2 01/05/17 19:50 18 95 Room Air 01/05/17 19:48 57 154/74 01/05/17 16:11 97.6 I&O Intake and Output 01/05/17 07:00 Intake Total 1200 ml Balance 1200 ml Intake Oral 1200 ml Labs: Laboratory Tests Test 01/05/17 07:33 01/05/17 11:35 01/05/17 16:33 01/05/17 19:11 Glucose (Fingerstick) 119 mg/dL (70-99) H 158 mg/dL (70-99) H 183 mg/dL (70-99) H 196 mg/dL (70-99) H Current Medications: Meds: Current Medications Acetaminophen (Tylenol) 650 mg PRN Q6HRS PRN PO MILD PAIN / TEMP; Start at 03:45 Multi-Ingredient Ointment (Analgesic [place]) 1 urmila PRN QID PRN TP MUSCLE PAIN; Start 01/02/17 at 03:45 Al Hydroxide/Mg Hydroxide (Mylanta Plus Xs) 15 ml PRN AFTMEALHC PRN PO DYSPEPSIA; Start 01/02/17 at 03:45 Magnesium Hydroxide (Milk Of Magnesia) 2,400 mg PRN QHS PRN PO CONSTIPATION; Start 01/02/17 at 03:45 Bupropion HCl (Wellbutrin Xl) 150 mg DAILY PO Last administered on 01/05/17 10 :14; Start 01/02/17 at 09:00 Lorazepam (Ativan) 1 mg PRN BID PRN PO ANXIETY / AGITATION Last administered on 01/03/17 02:45; Start 01/02/17 at 03:45; Stop 01/04/17 at 18:14; Status DC Clopidogrel Bisulfate (Plavix) 75 mg DAILY PO Last administered on 01/05/17 10 :14; Start 01/02/17 at 09:00 Docusate Sodium (Colace) 100 mg BID PO Last administered on 01/05/17 19:47; Start 01/02/17 at 09:00 Ferrous Sulfate (Feosol) 325 mg DAILY PO Last administered on 01/05/17 10:15; Start 01/02/17 at 09:00 Furosemide (Lasix) 20 mg 3X/WEEK PO Last administered on 01/05/17 10:16; Start 01/03/17 at 09:00 Insulin Aspart (Novolog) 12 units TIDAC SQ Last administered on 01/05/17 16:52 ; Start 01/02/17 at 07:30 Levothyroxine Sodium (Synthroid) 100 mcg DAILY06 PO Last administered on 05:43; Start 01/02/17 at 06:00 Magnesium Oxide (Magnesium Oxide) 400 mg BID PO Last administered on 01/05/17 19:48; Start 01/02/17 at 09:00 Morphine Sulfate (Ms Contin) 15 mg BID PO Last administered on 01/02/17 10:04 ; Start 01/02/17 at 09:00; Stop 01/02/17 at 18:42; Status DC Nitroglycerin (Nitrostat) 0.4 mg PRN 1X PRN SL CHEST PAIN; Start 01/02/17 at 04 :00 Pantoprazole Sodium (Protonix) 40 mg BIDBFRMEAL PO Last administered on 16:50; Start 01/02/17 at 07:30 Promethazine HCl (Phenergan) 25 mg PRN BID PRN PO NAUSEA/VOMITING Last administered on 01/05/17 08:00; Start 01/02/17 at 04:00 Atorvastatin Calcium (Lipitor) 80 mg QHS PO Last administered on 01/05/17 19: 47; Start 01/02/17 at 21:00 Insulin Detemir (Levemir) 28 units QHS SQ Last administered on 01/05/17 19:51 ; Start 01/02/17 at 21:00 Non-Formulary Medication 1 puff PRN BID PRN INH SHORTNESS OF BREATH; Start at 04:00; Status UNV Non-Formulary Medication 2 puff PRN TID PRN IH SHORTNESS OF BREATH; Start 01/02 at 04:00; Status UNV Metoprolol Tartrate (Lopressor) 50 mg BID PO Last administered on 01/05/17 19: 48; Start 01/02/17 at 09:00 Albuterol/ Ipratropium (Duoneb) 3 ml RTBID NEB Last administered on 01/03/17 11:00; Start 01/02/17 at 08:00; Stop 01/04/17 at 10:21; Status DC Albuterol Sulfate (Ventolin) 2.5 mg PRN Q6HRS PRN NEB SHORTNESS OF BREATH; Start 01/02/17 at 04:00 Morphine Sulfate (Ms Contin) 15 mg HS PO Last administered on 01/05/17 19:50; Start 01/02/17 at 21:00 Clonidine HCl (Catapres) 0.05 mg PRN DAILY PRN PO WITHDRAWAL; Start 01/03/17 at 07:30 Albuterol/ Ipratropium (Duoneb) 3 ml PRN BID PRN NEB WHEEZING; Start 01/04/17 at 10:30 Lorazepam (Ativan) 0.5 mg PRN BID PRN PO ANXIETY / AGITATION Last administered on 01/05/17 17:35; Start 01/04/17 at 18:00 Trazodone HCl (Desyrel) 25 mg QHS PO Last administered on 01/05/17 19:47; Start 01/04/17 at 21:00 Active Scripts Active Reported Novolog Flexpen (Insulin Aspart) 100 Unit/1 Ml Insuln.pen 12 Unit SQ TIDAC Ativan (Lorazepam) 1 Mg Tablet 1 Mg PO PRN BID PRN Wellbutrin Xl (Bupropion Hcl) 150 Mg Tab.er.24h 150 Mg PO DAILY Promethazine Hcl 25 Mg Tablet 25 Mg PO PRN BID PRN Bystolic (Nebivolol Hcl) 10 Mg Tablet 10 Mg PO DAILY Atorvastatin Calcium 80 Mg Tablet 80 Mg PO QHS Pantoprazole Sodium 40 Mg Tablet.dr 40 Mg PO BIDBFRMEAL Plavix (Clopidogrel Bisulfate) 75 Mg Tablet 75 Mg PO DAILY Levothyroxine Sodium 100 Mcg Tablet 100 Mcg PO DAILY06 Docusate Sodium 100 Mg Capsule 100 Mg PO BID Nitrostat (Nitroglycerin) 0.4 Mg Tab.subl 0.4 Mg SL PRN 1X PRN Ferrous Sulfate 325 Mg Tablet 325 Mg PO DAILY Combivent Respimat Inhal (Ipratropium/Albuterol Sulfate) 4 Gm Aer.w.adap 1 Puff INH PRN BID PRN Xopenex Hfa (Levalbuterol Tartrate) 15 Gm Hfa.aer.ad 2 Puff IH PRN TID PRN Mag-Oxide (Magnesium Oxide) 400 Mg Tablet 400 Mg PO BID Lantus Solostar (Insulin Glargine,Hum.rec.anlog) 100 Unit/1 Ml Insuln.pen 28 Unit SQ QHS MERVIN CEE MD January 05, 2017 20:40
[2017-01-06] MEDS: LEVOTHYROXINE 100 MCG TABLET PO SCH (05:33)
[2017-01-06 05:54] VITALS: BP 123/56
[2017-01-06] MEDS: DOCUSATE SODIUM 100 MG CAPSULE PO SCH ×2 (08:01→19:59)
[2017-01-06] MEDS: FERROUS SULFATE 325 MG TABLET PO SCH (08:01)
[2017-01-06] MEDS: CLOPIDOGREL BISULFATE 75 MG TABLET PO SCH (08:01)
[2017-01-06] MEDS: PANTOPRAZOLE 40 MG TABLET. PO SCH ×2 (08:01→16:54)
[2017-01-06] MEDS: MAGNESIUM OXIDE 400 MG TABLET PO SCH ×2 (08:01→20:00)
[2017-01-06] MEDS: buPROPion XL 150 MG TAB.ER.24H PO SCH (08:01)
[2017-01-06] MEDS: INSULIN ASPART 300 UNITS/3 ML INSULN.PEN SQ SCH ×3 (08:02→17:02)
[2017-01-06] MEDS: METOPROLOL TART IMMED RELEASE 50 MG TABLET PO SCH ×2 (08:11→20:00)
[2017-01-06] MEDS: LORazepam 0.5 MG TABLET PO PRN ×2 (08:13→20:11)
[2017-01-06 16:03] VITALS: BP 132/58
[2017-01-06] MEDS: traZODone 50 MG TABLET. PO SCH (19:59)
[2017-01-06] MEDS: ATORVASTATIN CALCIUM 20 MG TABLET PO SCH (19:59)
[2017-01-06] MEDS: MORPHINE ER 15 MG TABLET.ER PO SCH (20:01)
[2017-01-06] MEDS: INSULIN DETEMIR 300 UNITS/3 ML INSULN.PEN. SQ SCH (20:02)
--- NOTE | 2017-01-06 21:07 | PDOC ---
Exam [place] Demential Exam: [place] Note: Please also refer to the separate dictated note~for this date of service dictated separately.~Patient seen individually. Discussed the patient with Nursing staff reviewed the chart.~Reviewed interim history and current functioning. Reviewed vital signs,~Labs/ Radiology~and current medications noted below. Continue current treatment with the changes noted in the dictated addendum note Assessment: Vital Signs: Vital Signs Date Time Temp Pulse Resp B/P (MAP) Pulse Ox O2 Delivery O2 Flow Rate FiO2 01/06/17 20:01 94 Room Air 01/06/17 20:00 71 132/58 01/06/17 16:03 97.8 20 I&O Intake and Output 01/06/17 07:00 Intake Total 840 ml Balance 840 ml Intake Oral 840 ml Labs: Laboratory Tests Test 01/06/17 07:31 01/06/17 11:09 01/06/17 16:35 01/06/17 19:55 Glucose (Fingerstick) 124 mg/dL (70-99) H 200 mg/dL (70-99) H 162 mg/dL (70-99) H 162 mg/dL (70-99) H Current Medications: Meds: Current Medications Acetaminophen (Tylenol) 650 mg PRN Q6HRS PRN PO MILD PAIN / TEMP; Start at 03:45 Multi-Ingredient Ointment (Analgesic [place]) 1 urmila PRN QID PRN TP MUSCLE PAIN; Start 01/02/17 at 03:45 Al Hydroxide/Mg Hydroxide (Mylanta Plus Xs) 15 ml PRN AFTMEALHC PRN PO DYSPEPSIA; Start 01/02/17 at 03:45 Magnesium Hydroxide (Milk Of Magnesia) 2,400 mg PRN QHS PRN PO CONSTIPATION; Start 01/02/17 at 03:45 Bupropion HCl (Wellbutrin Xl) 150 mg DAILY PO Last administered on 01/06/17 08 :01; Start 01/02/17 at 09:00 Lorazepam (Ativan) 1 mg PRN BID PRN PO ANXIETY / AGITATION Last administered on 01/03/17 02:45; Start 01/02/17 at 03:45; Stop 01/04/17 at 18:14; Status DC Clopidogrel Bisulfate (Plavix) 75 mg DAILY PO Last administered on 01/06/17 08 :01; Start 01/02/17 at 09:00 Docusate Sodium (Colace) 100 mg BID PO Last administered on 01/06/17 19:59; Start 01/02/17 at 09:00 Ferrous Sulfate (Feosol) 325 mg DAILY PO Last administered on 01/06/17 08:01; Start 01/02/17 at 09:00 Furosemide (Lasix) 20 mg 3X/WEEK PO Last administered on 01/05/17 10:16; Start 01/03/17 at 09:00 Insulin Aspart (Novolog) 12 units TIDAC SQ Last administered on 01/06/17 17:02 ; Start 01/02/17 at 07:30 Levothyroxine Sodium (Synthroid) 100 mcg DAILY06 PO Last administered on 05:33; Start 01/02/17 at 06:00 Magnesium Oxide (Magnesium Oxide) 400 mg BID PO Last administered on 01/06/17 20:00; Start 01/02/17 at 09:00 Morphine Sulfate (Ms Contin) 15 mg BID PO Last administered on 01/02/17 10:04 ; Start 01/02/17 at 09:00; Stop 01/02/17 at 18:42; Status DC Nitroglycerin (Nitrostat) 0.4 mg PRN 1X PRN SL CHEST PAIN; Start 01/02/17 at 04 :00 Pantoprazole Sodium (Protonix) 40 mg BIDBFRMEAL PO Last administered on 16:54; Start 01/02/17 at 07:30 Promethazine HCl (Phenergan) 25 mg PRN BID PRN PO NAUSEA/VOMITING Last administered on 01/05/17 08:00; Start 01/02/17 at 04:00 Atorvastatin Calcium (Lipitor) 80 mg QHS PO Last administered on 01/06/17 19: 59; Start 01/02/17 at 21:00 Insulin Detemir (Levemir) 28 units QHS SQ Last administered on 01/06/17 20:02 ; Start 01/02/17 at 21:00 Non-Formulary Medication 1 puff PRN BID PRN INH SHORTNESS OF BREATH; Start at 04:00; Status UNV Non-Formulary Medication 2 puff PRN TID PRN IH SHORTNESS OF BREATH; Start 01/02 at 04:00; Status UNV Metoprolol Tartrate (Lopressor) 50 mg BID PO Last administered on 01/06/17 20: 00; Start 01/02/17 at 09:00 Albuterol/ Ipratropium (Duoneb) 3 ml RTBID NEB Last administered on 01/03/17 11:00; Start 01/02/17 at 08:00; Stop 01/04/17 at 10:21; Status DC Albuterol Sulfate (Ventolin) 2.5 mg PRN Q6HRS PRN NEB SHORTNESS OF BREATH; Start 01/02/17 at 04:00 Morphine Sulfate (Ms Contin) 15 mg HS PO Last administered on 01/06/17 20:01; Start 01/02/17 at 21:00 Clonidine HCl (Catapres) 0.05 mg PRN DAILY PRN PO WITHDRAWAL; Start 01/03/17 at 07:30 Albuterol/ Ipratropium (Duoneb) 3 ml PRN BID PRN NEB WHEEZING; Start 01/04/17 at 10:30 Lorazepam (Ativan) 0.5 mg PRN BID PRN PO ANXIETY / AGITATION Last administered on 01/06/17 20:11; Start 01/04/17 at 18:00 Trazodone HCl (Desyrel) 25 mg QHS PO Last administered on 01/06/17 19:59; Start 01/04/17 at 21:00 Active Scripts Active Reported Novolog Flexpen (Insulin Aspart) 100 Unit/1 Ml Insuln.pen 12 Unit SQ TIDAC Ativan (Lorazepam) 1 Mg Tablet 1 Mg PO PRN BID PRN Wellbutrin Xl (Bupropion Hcl) 150 Mg Tab.er.24h 150 Mg PO DAILY Promethazine Hcl 25 Mg Tablet 25 Mg PO PRN BID PRN Bystolic (Nebivolol Hcl) 10 Mg Tablet 10 Mg PO DAILY Atorvastatin Calcium 80 Mg Tablet 80 Mg PO QHS Pantoprazole Sodium 40 Mg Tablet.dr 40 Mg PO BIDBFRMEAL Plavix (Clopidogrel Bisulfate) 75 Mg Tablet 75 Mg PO DAILY Levothyroxine Sodium 100 Mcg Tablet 100 Mcg PO DAILY06 Docusate Sodium 100 Mg Capsule 100 Mg PO BID Nitrostat (Nitroglycerin) 0.4 Mg Tab.subl 0.4 Mg SL PRN 1X PRN Ferrous Sulfate 325 Mg Tablet 325 Mg PO DAILY Combivent Respimat Inhal (Ipratropium/Albuterol Sulfate) 4 Gm Aer.w.adap 1 Puff INH PRN BID PRN Xopenex Hfa (Levalbuterol Tartrate) 15 Gm Hfa.aer.ad 2 Puff IH PRN TID PRN Mag-Oxide (Magnesium Oxide) 400 Mg Tablet 400 Mg PO BID Lantus Solostar (Insulin Glargine,Hum.rec.anlog) 100 Unit/1 Ml Insuln.pen 28 Unit SQ QHS MERVIN CEE MD January 06, 2017 21:07
[2017-01-07 05:18] VITALS: BP 141/89
[2017-01-07] MEDS: LEVOTHYROXINE 100 MCG TABLET PO SCH (05:35)
[2017-01-07] MEDS: FUROSEMIDE 20 MG TABLET PO SCH (08:10)
[2017-01-07] MEDS: buPROPion XL 150 MG TAB.ER.24H PO SCH (08:10)
[2017-01-07] MEDS: PANTOPRAZOLE 40 MG TABLET. PO SCH ×2 (08:10→17:19)
[2017-01-07] MEDS: FERROUS SULFATE 325 MG TABLET PO SCH (08:10)
[2017-01-07] MEDS: DOCUSATE SODIUM 100 MG CAPSULE PO SCH ×2 (08:10→19:42)
[2017-01-07] MEDS: MAGNESIUM OXIDE 400 MG TABLET PO SCH ×2 (08:10→19:44)
[2017-01-07] MEDS: CLOPIDOGREL BISULFATE 75 MG TABLET PO SCH (08:10)
[2017-01-07] MEDS: METOPROLOL TART IMMED RELEASE 50 MG TABLET PO SCH ×2 (08:12→19:43)
[2017-01-07] MEDS: INSULIN ASPART 300 UNITS/3 ML INSULN.PEN SQ SCH ×3 (08:12→16:30)
[2017-01-07] MEDS: LORazepam 0.5 MG TABLET PO PRN (08:21)
[2017-01-07 08:53] LABS: BASO % 0 % (0-3); EOS # 0.3 x10^3/uL (0.0-0.7); EOS % 4 % (0-3); HEMATOCRIT 38.5 % (36.0-47.0); LYMPH # 1.9 x10^3/uL (1.0-4.8); LYMPH % 20 % (24-48); MEAN CORPUSCULAR HEMOGLOBIN 29 pg (25-35); MEAN CORPUSCULAR HGB CONC 33 g/dL (31-37); MEAN CORPUSCULAR VOLUME 90 fL (79-100); MONO # 0.6 x10^3/uL (0.0-1.1); MONO % 6 % (0-9); NEUT # 6.4 x10^3uL (1.8-7.7); NEUT % 70 % (31-73); PLATELET COUNT 356 x10^3/uL (140-400); RED BLOOD COUNT 4.28 x10^6/uL (3.50-5.40); RED CELL DISTRIBUTION WIDTH 13.6 % (11.5-14.5); WHITE BLOOD COUNT 9.2 x10^3/uL (4.0-11.0)
[2017-01-07 09:10] LABS: HEMOGLOBIN 12.5 g/dL (12.0-15.5)
[2017-01-07 09:50] LABS: % BANDS 1 % (0-9); % BASOS 1 % (0-3); % EOS 1 % (0-5); % LYMPHS 31 % (24-48); % MONOS 5 % (0-10); % SEGS 59 % (35-66)
[2017-01-07 09:51] LABS: PLT ESTIMATE ADEQUATE (ADEQUATE); POLYCHROMASIA SLIGHT
[2017-01-07 16:26] VITALS: BP 127/76
[2017-01-07] MEDS: PROMETHAZINE 25 MG TABLET. PO PRN (17:19)
[2017-01-07] MEDS ORDERED: traZODone 50 MG TABLET. PO PRN (19:00)
[2017-01-07] MEDS: MORPHINE ER 15 MG TABLET.ER PO SCH (19:43)
[2017-01-07] MEDS: traZODone 50 MG TABLET. PO SCH (19:44)
[2017-01-07] MEDS: ATORVASTATIN CALCIUM 20 MG TABLET PO SCH (19:44)
[2017-01-07] MEDS: INSULIN DETEMIR 300 UNITS/3 ML INSULN.PEN. SQ SCH (20:49)
--- NOTE | 2017-01-07 21:10 | PDOC ---
Exam Clinton Demential Exam: Clinton Note: Please also refer to the separate dictated note~for this date of service dictated separately.~Patient seen individually. Discussed the patient with Nursing staff reviewed the chart.~Reviewed interim history and current functioning. Reviewed vital signs,~Labs/ Radiology~and current medications noted below. Continue current treatment with the changes noted in the dictated addendum note Assessment: Vital Signs: Vital Signs Date Time Temp Pulse Resp B/P (MAP) Pulse Ox O2 Delivery O2 Flow Rate FiO2 01/07/17 19:43 16 Room Air 01/07/17 19:43 69 127/76 01/07/17 16:26 97.5 93 I&O Intake and Output 01/07/17 07:00 Intake Total 1080 ml Balance 1080 ml Intake Oral 1080 ml Labs: Laboratory Tests Test 01/07/17 07:30 01/07/17 08:45 01/07/17 11:20 01/07/17 17:01 Glucose (Fingerstick) 128 mg/dL (70-99) H 162 mg/dL (70-99) H 170 mg/dL (70-99) H White Blood Count 9.2 x10^3/uL (4.0-11.0) Red Blood Count 4.28 x10^6/uL (3.50-5.40) Hemoglobin 12.5 g/dL (12.0-15.5) Hematocrit 38.5 % (36.0-47.0) Mean Corpuscular Volume 90 fL (79-100) Mean Corpuscular Hemoglobin 29 pg (25-35) Mean Corpuscular Hemoglobin Concent 33 g/dL (31-37) Red Cell Distribution Width 13.6 % (11.5-14.5) Platelet Count 356 x10^3/uL (140-400) Neutrophils (%) (Auto) 70 % (31-73) Lymphocytes (%) (Auto) 20 % (24-48) L Monocytes (%) (Auto) 6 % (0-9) Eosinophils (%) (Auto) 4 % (0-3) H Basophils (%) (Auto) 0 % (0-3) Neutrophils # (Auto) 6.4 x10^3uL (1.8-7.7) Lymphocytes # (Auto) 1.9 x10^3/uL (1.0-4.8) Monocytes # (Auto) 0.6 x10^3/uL (0.0-1.1) Eosinophils # (Auto) 0.3 x10^3/uL (0.0-0.7) Basophils # (Auto) 0.0 x10^3/uL (0.0-0.2) Segmented Neutrophils % 59 % (35-66) Band Neutrophils % 1 % (0-9) Lymphocytes % 31 % (24-48) Monocytes % 5 % (0-10) Eosinophils % 1 % (0-5) Basophils % 1 % (0-3) Platelet Estimate Adequate (ADEQUATE) Polychromasia Slight Test 01/07/17 19:27 Glucose (Fingerstick) 156 mg/dL (70-99) H Current Medications: Meds: Current Medications Acetaminophen (Tylenol) 650 mg PRN Q6HRS PRN PO MILD PAIN / TEMP; Start at 03:45 Multi-Ingredient Ointment (Analgesic [place]) 1 urmila PRN QID PRN TP MUSCLE PAIN; Start 01/02/17 at 03:45 Al Hydroxide/Mg Hydroxide (Mylanta Plus Xs) 15 ml PRN AFTMEALHC PRN PO DYSPEPSIA; Start 01/02/17 at 03:45 Magnesium Hydroxide (Milk Of Magnesia) 2,400 mg PRN QHS PRN PO CONSTIPATION; Start 01/02/17 at 03:45 Bupropion HCl (Wellbutrin Xl) 150 mg DAILY PO Last administered on 01/07/17 08 :10; Start 01/02/17 at 09:00 Lorazepam (Ativan) 1 mg PRN BID PRN PO ANXIETY / AGITATION Last administered on 01/03/17 02:45; Start 01/02/17 at 03:45; Stop 01/04/17 at 18:14; Status DC Clopidogrel Bisulfate (Plavix) 75 mg DAILY PO Last administered on 01/07/17 08 :10; Start 01/02/17 at 09:00 Docusate Sodium (Colace) 100 mg BID PO Last administered on 01/07/17 19:42; Start 01/02/17 at 09:00 Ferrous Sulfate (Feosol) 325 mg DAILY PO Last administered on 01/07/17 08:10; Start 01/02/17 at 09:00 Furosemide (Lasix) 20 mg 3X/WEEK PO Last administered on 01/07/17 08:10; Start 01/03/17 at 09:00 Insulin Aspart (Novolog) 12 units TIDAC SQ Last administered on 01/07/17 12:16 ; Start 01/02/17 at 07:30 Levothyroxine Sodium (Synthroid) 100 mcg DAILY06 PO Last administered on 05:35; Start 01/02/17 at 06:00 Magnesium Oxide (Magnesium Oxide) 400 mg BID PO Last administered on 01/07/17 19:44; Start 01/02/17 at 09:00 Morphine Sulfate (Ms Contin) 15 mg BID PO Last administered on 01/02/17 10:04 ; Start 01/02/17 at 09:00; Stop 01/02/17 at 18:42; Status DC Nitroglycerin (Nitrostat) 0.4 mg PRN 1X PRN SL CHEST PAIN; Start 01/02/17 at 04 :00 Pantoprazole Sodium (Protonix) 40 mg BIDBFRMEAL PO Last administered on 17:19; Start 01/02/17 at 07:30 Promethazine HCl (Phenergan) 25 mg PRN BID PRN PO NAUSEA/VOMITING Last administered on 01/07/17 17:19; Start 01/02/17 at 04:00 Atorvastatin Calcium (Lipitor) 80 mg QHS PO Last administered on 01/07/17 19: 44; Start 01/02/17 at 21:00 Insulin Detemir (Levemir) 28 units QHS SQ Last administered on 01/07/17 20:49 ; Start 01/02/17 at 21:00 Non-Formulary Medication 1 puff PRN BID PRN INH SHORTNESS OF BREATH; Start at 04:00; Status UNV Non-Formulary Medication 2 puff PRN TID PRN IH SHORTNESS OF BREATH; Start 01/02 at 04:00; Status UNV Metoprolol Tartrate (Lopressor) 50 mg BID PO Last administered on 01/07/17 19: 43; Start 01/02/17 at 09:00 Albuterol/ Ipratropium (Duoneb) 3 ml RTBID NEB Last administered on 01/03/17 11:00; Start 01/02/17 at 08:00; Stop 01/04/17 at 10:21; Status DC Albuterol Sulfate (Ventolin) 2.5 mg PRN Q6HRS PRN NEB SHORTNESS OF BREATH; Start 01/02/17 at 04:00 Morphine Sulfate (Ms Contin) 15 mg HS PO Last administered on 01/07/17 19:43; Start 01/02/17 at 21:00 Clonidine HCl (Catapres) 0.05 mg PRN DAILY PRN PO WITHDRAWAL; Start 01/03/17 at 07:30 Albuterol/ Ipratropium (Duoneb) 3 ml PRN BID PRN NEB WHEEZING; Start 01/04/17 at 10:30 Lorazepam (Ativan) 0.5 mg PRN BID PRN PO ANXIETY / AGITATION Last administered on 01/07/17 08:21; Start 01/04/17 at 18:00 Trazodone HCl (Desyrel) 25 mg QHS PO Last administered on 01/06/17 19:59; Start 01/04/17 at 21:00; Stop 01/07/17 at 18:57; Status DC Trazodone HCl (Desyrel) 50 mg QHS PO Last administered on 01/07/17 19:44; Start 01/07/17 at 21:00 Trazodone HCl (Desyrel) 50 mg PRN 1X PRN PO insomnia; Start 01/07/17 at 19:00 Active Scripts Active Reported Novolog Flexpen (Insulin Aspart) 100 Unit/1 Ml Insuln.pen 12 Unit SQ TIDAC Ativan (Lorazepam) 1 Mg Tablet 1 Mg PO PRN BID PRN Wellbutrin Xl (Bupropion Hcl) 150 Mg Tab.er.24h 150 Mg PO DAILY Promethazine Hcl 25 Mg Tablet 25 Mg PO PRN BID PRN Bystolic (Nebivolol Hcl) 10 Mg Tablet 10 Mg PO DAILY Atorvastatin Calcium 80 Mg Tablet 80 Mg PO QHS Pantoprazole Sodium 40 Mg Tablet.dr 40 Mg PO BIDBFRMEAL Plavix (Clopidogrel Bisulfate) 75 Mg Tablet 75 Mg PO DAILY Levothyroxine Sodium 100 Mcg Tablet 100 Mcg PO DAILY06 Docusate Sodium 100 Mg Capsule 100 Mg PO BID Nitrostat (Nitroglycerin) 0.4 Mg Tab.subl 0.4 Mg SL PRN 1X PRN Ferrous Sulfate 325 Mg Tablet 325 Mg PO DAILY Combivent Respimat Inhal (Ipratropium/Albuterol Sulfate) 4 Gm Aer.w.adap 1 Puff INH PRN BID PRN Xopenex Hfa (Levalbuterol Tartrate) 15 Gm Hfa.aer.ad 2 Puff IH PRN TID PRN Mag-Oxide (Magnesium Oxide) 400 Mg Tablet 400 Mg PO BID Lantus Solostar (Insulin Glargine,Hum.rec.anlog) 100 Unit/1 Ml Insuln.pen 28 Unit SQ QHS MERVIN CEE MD January 07, 2017 21:10
--- NOTE | 2017-01-08 00:28 | PN ---
DATE: 01/05/2017 PSYCHIATRIC PROGRESS NOTE This is a late entry of 01/05/2017 covers elements not covered in my initial note. SUBJECTIVE: The patient has been withdrawn. She has tolerated tapered off the narcotics. Continues to read a book in her room and states she enjoys this. I met with her individually in her room. No CV, , pulmonary, eye system symptoms on review. MENTAL STATUS EXAM: Reasonably oriented. Speech coherent, abstraction fair, computation impaired, language function intact. Mood and affect is improved. LABORATORY DATA: Reviewed. IMPRESSION: Unchanged from initial note. PLAN: Continue current psychotropics. Defer to Dr. Rodriguez, Neurology regarding workup for seizures as suggested by daughter. MAN Pura CEE MD DR: CHASITY/nts JOB#: [id number] / [id number]
--- NOTE | 2017-01-08 00:29 | PN ---
DATE: 01/06/2017 PSYCHIATRIC PROGRESS NOTE This is a late entry of 01/06/2017, covers elements not covered in my initial note. SUBJECTIVE: The patient was staffed at a treatment team meeting with the entire team the morning of 01/06/2017, and daughter, Shahrzad, attended conference, reviewed a history sleeping about 4 hours. Appetite 90%. Neurology workup for seizures per Dr. Rodriguez. Denies any pains. REVIEW OF SYSTEMS: No CV, , pulmonary, eye system symptoms on review, met with her in her room at some length. MENTAL STATUS EXAM: Reasonably oriented. Speech coherent, abstraction fair, computation impaired, language function intact. Mood and affect is improved. LABORATORY DATA: Reviewed. IMPRESSION: Unchanged from initial note. PLAN: Continue current psychotropics. MAN Pura CEE MD DR: CHASITY/micki JOB#: [id number] / [id number]
[2017-01-08] MEDS: LEVOTHYROXINE 100 MCG TABLET PO SCH (05:19)
[2017-01-08 06:14] VITALS: BP 102/63
[2017-01-08] MEDS: buPROPion XL 150 MG TAB.ER.24H PO SCH (08:11)
[2017-01-08] MEDS: CLOPIDOGREL BISULFATE 75 MG TABLET PO SCH (08:11)
[2017-01-08] MEDS: DOCUSATE SODIUM 100 MG CAPSULE PO SCH ×2 (08:11→20:55)
[2017-01-08] MEDS: PANTOPRAZOLE 40 MG TABLET. PO SCH ×2 (08:11→16:52)
[2017-01-08] MEDS: FERROUS SULFATE 325 MG TABLET PO SCH ×3 (08:12→16:52)
[2017-01-08] MEDS: MAGNESIUM OXIDE 400 MG TABLET PO SCH ×2 (08:12→20:53)
[2017-01-08] MEDS: METOPROLOL TART IMMED RELEASE 50 MG TABLET PO SCH ×2 (08:24→20:59)
[2017-01-08] MEDS: INSULIN ASPART 300 UNITS/3 ML INSULN.PEN SQ SCH ×3 (08:25→17:36)
[2017-01-08] MEDS: CHOLECALCIFEROL (VITAMIN D3) 1,000 UNIT TABLET PO SCH ×2 (12:01→16:52)
[2017-01-08 16:35] VITALS: BP 124/57
[2017-01-08] MEDS: ASCORBIC ACID 500 MG TABLET PO SCH (16:51)
[2017-01-08] MEDS: LORazepam 0.5 MG TABLET PO PRN (17:40)
[2017-01-08] MEDS: ATORVASTATIN CALCIUM 20 MG TABLET PO SCH (20:52)
[2017-01-08] MEDS: MORPHINE ER 15 MG TABLET.ER PO SCH (20:53)
[2017-01-08] MEDS: traZODone 50 MG TABLET. PO SCH (20:53)
[2017-01-08] MEDS: INSULIN DETEMIR 300 UNITS/3 ML INSULN.PEN. SQ SCH (20:57)
--- NOTE | 2017-01-08 20:59 | PDOC ---
Exam [place] Demential Exam: Clinton Note: Please also refer to the separate dictated note~for this date of service dictated separately.~Patient seen individually. Discussed the patient with Nursing staff reviewed the chart.~Reviewed interim history and current functioning. Reviewed vital signs,~Labs/ Radiology~and current medications noted below. Continue current treatment with the changes noted in the dictated addendum note Assessment: Vital Signs: Vital Signs Date Time Temp Pulse Resp B/P (MAP) Pulse Ox O2 Delivery O2 Flow Rate FiO2 01/08/17 16:35 97.9 56 20 124/57 (79) 98 01/07/17 23:52 Room Air I&O Intake and Output 01/08/17 07:00 Intake Total 600 ml Balance 600 ml Intake Oral 600 ml Labs: Laboratory Tests Test 01/08/17 07:15 01/08/17 11:54 01/08/17 17:12 01/08/17 19:11 Glucose (Fingerstick) 141 mg/dL (70-99) H 194 mg/dL (70-99) H 134 mg/dL (70-99) H 193 mg/dL (70-99) H Current Medications: Meds: Current Medications Acetaminophen (Tylenol) 650 mg PRN Q6HRS PRN PO MILD PAIN / TEMP; Start at 03:45 Multi-Ingredient Ointment (Analgesic [place]) 1 urmila PRN QID PRN TP MUSCLE PAIN; Start 01/02/17 at 03:45 Al Hydroxide/Mg Hydroxide (Mylanta Plus Xs) 15 ml PRN AFTMEALHC PRN PO DYSPEPSIA; Start 01/02/17 at 03:45 Magnesium Hydroxide (Milk Of Magnesia) 2,400 mg PRN QHS PRN PO CONSTIPATION; Start 01/02/17 at 03:45 Bupropion HCl (Wellbutrin Xl) 150 mg DAILY PO Last administered on 01/08/17 08 :11; Start 01/02/17 at 09:00 Lorazepam (Ativan) 1 mg PRN BID PRN PO ANXIETY / AGITATION Last administered on 01/03/17 02:45; Start 01/02/17 at 03:45; Stop 01/04/17 at 18:14; Status DC Clopidogrel Bisulfate (Plavix) 75 mg DAILY PO Last administered on 01/08/17 08 :11; Start 01/02/17 at 09:00 Docusate Sodium (Colace) 100 mg BID PO Last administered on 01/08/17 08:11; Start 01/02/17 at 09:00 Ferrous Sulfate (Feosol) 325 mg DAILY PO Last administered on 01/08/17 08:12; Start 01/02/17 at 09:00; Stop 01/08/17 at 11:22; Status DC Furosemide (Lasix) 20 mg 3X/WEEK PO Last administered on 01/07/17 08:10; Start 01/03/17 at 09:00; Stop 01/08/17 at 11:00; Status DC Insulin Aspart (Novolog) 12 units TIDAC SQ Last administered on 01/08/17 12:03 ; Start 01/02/17 at 07:30 Levothyroxine Sodium (Synthroid) 100 mcg DAILY06 PO Last administered on 05:19; Start 01/02/17 at 06:00; Stop 01/08/17 at 11:22; Status DC Magnesium Oxide (Magnesium Oxide) 400 mg BID PO Last administered on 01/08/17 08:12; Start 01/02/17 at 09:00 Morphine Sulfate (Ms Contin) 15 mg BID PO Last administered on 01/02/17 10:04 ; Start 01/02/17 at 09:00; Stop 01/02/17 at 18:42; Status DC Nitroglycerin (Nitrostat) 0.4 mg PRN 1X PRN SL CHEST PAIN; Start 01/02/17 at 04 :00 Pantoprazole Sodium (Protonix) 40 mg BIDBFRMEAL PO Last administered on 08:11; Start 01/02/17 at 07:30 Promethazine HCl (Phenergan) 25 mg PRN BID PRN PO NAUSEA/VOMITING Last administered on 01/07/17 17:19; Start 01/02/17 at 04:00 Atorvastatin Calcium (Lipitor) 80 mg QHS PO Last administered on 01/07/17 19: 44; Start 01/02/17 at 21:00 Insulin Detemir (Levemir) 28 units QHS SQ Last administered on 01/07/17 20:49 ; Start 01/02/17 at 21:00 Non-Formulary Medication 1 puff PRN BID PRN INH SHORTNESS OF BREATH; Start at 04:00; Status UNV Non-Formulary Medication 2 puff PRN TID PRN IH SHORTNESS OF BREATH; Start 01/02 at 04:00; Status UNV Metoprolol Tartrate (Lopressor) 50 mg BID PO Last administered on 01/08/17 08: 24; Start 01/02/17 at 09:00 Albuterol/ Ipratropium (Duoneb) 3 ml RTBID NEB Last administered on 01/03/17 11:00; Start 01/02/17 at 08:00; Stop 01/04/17 at 10:21; Status DC Albuterol Sulfate (Ventolin) 2.5 mg PRN Q6HRS PRN NEB SHORTNESS OF BREATH; Start 01/02/17 at 04:00 Morphine Sulfate (Ms Contin) 15 mg HS PO Last administered on 01/07/17 19:43; Start 01/02/17 at 21:00 Clonidine HCl (Catapres) 0.05 mg PRN DAILY PRN PO WITHDRAWAL; Start 01/03/17 at 07:30 Albuterol/ Ipratropium (Duoneb) 3 ml PRN BID PRN NEB WHEEZING; Start 01/04/17 at 10:30 Lorazepam (Ativan) 0.5 mg PRN BID PRN PO ANXIETY / AGITATION Last administered on 01/07/17 08:21; Start 01/04/17 at 18:00 Trazodone HCl (Desyrel) 25 mg QHS PO Last administered on 01/06/17 19:59; Start 01/04/17 at 21:00; Stop 01/07/17 at 18:57; Status DC Trazodone HCl (Desyrel) 50 mg QHS PO Last administered on 01/07/17 19:44; Start 01/07/17 at 21:00 Trazodone HCl (Desyrel) 50 mg PRN 1X PRN PO insomnia; Start 01/07/17 at 19:00 Furosemide (Lasix) 20 mg MoFr PO ; Start 01/10/17 at 09:00 Ferrous Sulfate (Feosol) 325 mg BIDACLD PO Last administered on 01/08/17 12:01 ; Start 01/08/17 at 11:30 Levothyroxine Sodium (Synthroid) 125 mcg DAILY06 PO ; Start 01/09/17 at 06:00 Vitamin D (Vitamin D3) 2,000 unit BIDACLD PO Last administered on 01/08/17t 12: 01; Start 01/08/17 at 11:30 Ascorbic Acid (Vitamin C) 500 mg DAILYBFRSUP PO ; Start 01/08/17 at 17:00 Insulin Detemir (Levemir) 4 units DAILY08 SQ ; Start 01/09/17 at 08:00 Active Scripts Active Reported Novolog Flexpen (Insulin Aspart) 100 Unit/1 Ml Insuln.pen 12 Unit SQ TIDAC Ativan (Lorazepam) 1 Mg Tablet 1 Mg PO PRN BID PRN Wellbutrin Xl (Bupropion Hcl) 150 Mg Tab.er.24h 150 Mg PO DAILY Promethazine Hcl 25 Mg Tablet 25 Mg PO PRN BID PRN Bystolic (Nebivolol Hcl) 10 Mg Tablet 10 Mg PO DAILY Atorvastatin Calcium 80 Mg Tablet 80 Mg PO QHS Pantoprazole Sodium 40 Mg Tablet.dr 40 Mg PO BIDBFRMEAL Plavix (Clopidogrel Bisulfate) 75 Mg Tablet 75 Mg PO DAILY Levothyroxine Sodium 100 Mcg Tablet 100 Mcg PO DAILY06 Docusate Sodium 100 Mg Capsule 100 Mg PO BID Nitrostat (Nitroglycerin) 0.4 Mg Tab.subl 0.4 Mg SL PRN 1X PRN Ferrous Sulfate 325 Mg Tablet 325 Mg PO DAILY Combivent Respimat Inhal (Ipratropium/Albuterol Sulfate) 4 Gm Aer.w.adap 1 Puff INH PRN BID PRN Xopenex Hfa (Levalbuterol Tartrate) 15 Gm Hfa.aer.ad 2 Puff IH PRN TID PRN Mag-Oxide (Magnesium Oxide) 400 Mg Tablet 400 Mg PO BID Lantus Solostar (Insulin Glargine,Hum.rec.anlog) 100 Unit/1 Ml Insuln.pen 28 Unit SQ QHS MERVIN CEE MD January 08, 2017 20:59
[2017-01-08] MEDS: MAGNESIUM HYDROXIDE 2,400 MG/30 ML ORAL.SUSP. PO PRN (21:04)
[2017-01-09] MEDS: LEVOTHYROXINE 125 MCG TABLET PO SCH (05:50)
[2017-01-09 06:05] LABS: CALCIUM 9.1 mg/dL (8.5-10.1); CREATININE 1.3 mg/dL (0.6-1.0); GFR 41.8; MAGNESIUM 2.4 mg/dL (1.8-2.4); POTASSIUM 4.2 mmol/L (3.5-5.1)
[2017-01-09 06:56] VITALS: BP 126/55
[2017-01-09] MEDS: DOCUSATE SODIUM 100 MG CAPSULE PO SCH ×2 (08:00→19:12)
[2017-01-09] MEDS: buPROPion XL 150 MG TAB.ER.24H PO SCH (08:00)
[2017-01-09] MEDS: CLOPIDOGREL BISULFATE 75 MG TABLET PO SCH (08:00)
[2017-01-09] MEDS: MAGNESIUM OXIDE 400 MG TABLET PO SCH ×2 (08:04→19:12)
[2017-01-09] MEDS: PANTOPRAZOLE 40 MG TABLET. PO SCH ×2 (08:04→16:13)
[2017-01-09] MEDS: METOPROLOL TART IMMED RELEASE 50 MG TABLET PO SCH ×2 (08:04→19:34)
[2017-01-09] MEDS: INSULIN DETEMIR 300 UNITS/3 ML INSULN.PEN. SQ SCH ×2 (08:05→19:35)
[2017-01-09] MEDS: INSULIN ASPART 300 UNITS/3 ML INSULN.PEN SQ SCH ×3 (08:06→17:00)
[2017-01-09] MEDS: PROMETHAZINE 25 MG TABLET. PO PRN (08:12)
[2017-01-09] MEDS: CHOLECALCIFEROL (VITAMIN D3) 1,000 UNIT TABLET PO SCH ×2 (11:24→16:13)
[2017-01-09] MEDS: FERROUS SULFATE 325 MG TABLET PO SCH ×2 (11:24→16:14)
[2017-01-09] MEDS: ASCORBIC ACID 500 MG TABLET PO SCH (16:14)
[2017-01-09 16:15] VITALS: BP 129/62
[2017-01-09] MEDS: traZODone 50 MG TABLET. PO SCH (19:12)
[2017-01-09] MEDS: MORPHINE ER 15 MG TABLET.ER PO SCH (19:12)
[2017-01-09] MEDS: ATORVASTATIN CALCIUM 20 MG TABLET PO SCH (19:13)
[2017-01-09] MEDS: MAGNESIUM HYDROXIDE 2,400 MG/30 ML ORAL.SUSP. PO PRN ×2 (19:33→19:34)
--- NOTE | 2017-01-09 19:49 | PDOC ---
Exam Clinton Demential Exam: [place] Note: Please also refer to the separate dictated note~for this date of service dictated separately.~Patient seen individually. Discussed the patient with Nursing staff reviewed the chart.~Reviewed interim history and current functioning. Reviewed vital signs,~Labs/ Radiology~and current medications noted below. Continue current treatment with the changes noted in the dictated addendum note Assessment: Vital Signs: Vital Signs Date Time Temp Pulse Resp B/P (MAP) Pulse Ox O2 Delivery O2 Flow Rate FiO2 01/09/17 19:34 63 134/67 01/09/17 19:12 20 01/09/17 16:15 97.8 94 01/09/17 00:53 Room Air I&O Intake and Output 01/09/17 07:00 Intake Total 960 ml Balance 960 ml Intake Oral 960 ml Labs: Laboratory Tests Test 01/09/17 05:35 01/09/17 07:46 01/09/17 16:50 01/09/17 19:04 Sodium Level 139 mmol/L (136-145) Potassium Level 4.2 mmol/L (3.5-5.1) Chloride Level 100 mmol/L (98-107) Carbon Dioxide Level 30 mmol/L (21-32) Anion Gap 9 (6-14) Blood Urea Nitrogen 22 mg/dL (7-20) H Creatinine 1.3 mg/dL (0.6-1.0) H Estimated GFR (Cockcroft-Gault) 41.8 Glucose Level 135 mg/dL (70-99) H Calcium Level 9.1 mg/dL (8.5-10.1) Magnesium Level 2.4 mg/dL (1.8-2.4) Glucose (Fingerstick) 123 mg/dL (70-99) H 131 mg/dL (70-99) H 142 mg/dL (70-99) H Current Medications: Meds: Current Medications Acetaminophen (Tylenol) 650 mg PRN Q6HRS PRN PO MILD PAIN / TEMP; Start at 03:45 Multi-Ingredient Ointment (Analgesic [place]) 1 urmila PRN QID PRN TP MUSCLE PAIN; Start 01/02/17 at 03:45 Al Hydroxide/Mg Hydroxide (Mylanta Plus Xs) 15 ml PRN AFTMEALHC PRN PO DYSPEPSIA; Start 01/02/17 at 03:45 Magnesium Hydroxide (Milk Of Magnesia) 2,400 mg PRN QHS PRN PO CONSTIPATION Last administered on 01/09/17 19:34; Start 01/02/17 at 03:45 Bupropion HCl (Wellbutrin Xl) 150 mg DAILY PO Last administered on 01/09/17 08 :00; Start 01/02/17 at 09:00 Lorazepam (Ativan) 1 mg PRN BID PRN PO ANXIETY / AGITATION Last administered on 01/03/17 02:45; Start 01/02/17 at 03:45; Stop 01/04/17 at 18:14; Status DC Clopidogrel Bisulfate (Plavix) 75 mg DAILY PO Last administered on 01/09/17 08 :00; Start 01/02/17 at 09:00 Docusate Sodium (Colace) 100 mg BID PO Last administered on 01/09/17 19:12; Start 01/02/17 at 09:00 Ferrous Sulfate (Feosol) 325 mg DAILY PO Last administered on 01/08/17 08:12; Start 01/02/17 at 09:00; Stop 01/08/17 at 11:22; Status DC Furosemide (Lasix) 20 mg 3X/WEEK PO Last administered on 01/07/17 08:10; Start 01/03/17 at 09:00; Stop 01/08/17 at 11:00; Status DC Insulin Aspart (Novolog) 12 units TIDAC SQ Last administered on 01/09/17 17:00 ; Start 01/02/17 at 07:30 Levothyroxine Sodium (Synthroid) 100 mcg DAILY06 PO Last administered on 05:19; Start 01/02/17 at 06:00; Stop 01/08/17 at 11:22; Status DC Magnesium Oxide (Magnesium Oxide) 400 mg BID PO Last administered on 01/09/17 19:12; Start 01/02/17 at 09:00 Morphine Sulfate (Ms Contin) 15 mg BID PO Last administered on 01/02/17 10:04 ; Start 01/02/17 at 09:00; Stop 01/02/17 at 18:42; Status DC Nitroglycerin (Nitrostat) 0.4 mg PRN 1X PRN SL CHEST PAIN; Start 01/02/17 at 04 :00 Pantoprazole Sodium (Protonix) 40 mg BIDBFRMEAL PO Last administered on 16:13; Start 01/02/17 at 07:30 Promethazine HCl (Phenergan) 25 mg PRN BID PRN PO NAUSEA/VOMITING Last administered on 01/09/17 08:12; Start 01/02/17 at 04:00 Atorvastatin Calcium (Lipitor) 80 mg QHS PO Last administered on 01/09/17 19: 13; Start 01/02/17 at 21:00 Insulin Detemir (Levemir) 28 units QHS SQ Last administered on 01/09/17 19:35 ; Start 01/02/17 at 21:00 Non-Formulary Medication 1 puff PRN BID PRN INH SHORTNESS OF BREATH; Start at 04:00; Status UNV Non-Formulary Medication 2 puff PRN TID PRN IH SHORTNESS OF BREATH; Start 01/02 at 04:00; Status UNV Metoprolol Tartrate (Lopressor) 50 mg BID PO Last administered on 01/09/17 19: 34; Start 01/02/17 at 09:00 Albuterol/ Ipratropium (Duoneb) 3 ml RTBID NEB Last administered on 01/03/17 11:00; Start 01/02/17 at 08:00; Stop 01/04/17 at 10:21; Status DC Albuterol Sulfate (Ventolin) 2.5 mg PRN Q6HRS PRN NEB SHORTNESS OF BREATH; Start 01/02/17 at 04:00 Morphine Sulfate (Ms Contin) 15 mg HS PO Last administered on 01/09/17 19:12; Start 01/02/17 at 21:00 Clonidine HCl (Catapres) 0.05 mg PRN DAILY PRN PO WITHDRAWAL; Start 01/03/17 at 07:30 Albuterol/ Ipratropium (Duoneb) 3 ml PRN BID PRN NEB WHEEZING; Start 01/04/17 at 10:30 Lorazepam (Ativan) 0.5 mg PRN BID PRN PO ANXIETY / AGITATION Last administered on 01/08/17 17:40; Start 01/04/17 at 18:00 Trazodone HCl (Desyrel) 25 mg QHS PO Last administered on 01/06/17 19:59; Start 01/04/17 at 21:00; Stop 01/07/17 at 18:57; Status DC Trazodone HCl (Desyrel) 50 mg QHS PO Last administered on 01/09/17 19:12; Start 01/07/17 at 21:00 Trazodone HCl (Desyrel) 50 mg PRN 1X PRN PO insomnia; Start 01/07/17 at 19:00 Furosemide (Lasix) 20 mg MoFr PO ; Start 01/10/17 at 09:00 Ferrous Sulfate (Feosol) 325 mg BIDACLD PO Last administered on 01/09/17 16:14 ; Start 01/08/17 at 11:30 Levothyroxine Sodium (Synthroid) 125 mcg DAILY06 PO Last administered on 05:50; Start 01/09/17 at 06:00 Vitamin D (Vitamin D3) 2,000 unit BIDACLD PO Last administered on 01/09/17 16: 13; Start 01/08/17 at 11:30 Ascorbic Acid (Vitamin C) 500 mg DAILYBFRSUP PO Last administered on 01/09/17 16:14; Start 01/08/17 at 17:00 Insulin Detemir (Levemir) 4 units DAILY08 SQ Last administered on 01/09/17 08: 05; Start 01/09/17 at 08:00 Active Scripts Active Reported Novolog Flexpen (Insulin Aspart) 100 Unit/1 Ml Insuln.pen 12 Unit SQ TIDAC Ativan (Lorazepam) 1 Mg Tablet 1 Mg PO PRN BID PRN Wellbutrin Xl (Bupropion Hcl) 150 Mg Tab.er.24h 150 Mg PO DAILY Promethazine Hcl 25 Mg Tablet 25 Mg PO PRN BID PRN Bystolic (Nebivolol Hcl) 10 Mg Tablet 10 Mg PO DAILY Atorvastatin Calcium 80 Mg Tablet 80 Mg PO QHS Pantoprazole Sodium 40 Mg Tablet.dr 40 Mg PO BIDBFRMEAL Plavix (Clopidogrel Bisulfate) 75 Mg Tablet 75 Mg PO DAILY Levothyroxine Sodium 100 Mcg Tablet 100 Mcg PO DAILY06 Docusate Sodium 100 Mg Capsule 100 Mg PO BID Nitrostat (Nitroglycerin) 0.4 Mg Tab.subl 0.4 Mg SL PRN 1X PRN Ferrous Sulfate 325 Mg Tablet 325 Mg PO DAILY Combivent Respimat Inhal (Ipratropium/Albuterol Sulfate) 4 Gm Aer.w.adap 1 Puff INH PRN BID PRN Xopenex Hfa (Levalbuterol Tartrate) 15 Gm Hfa.aer.ad 2 Puff IH PRN TID PRN Mag-Oxide (Magnesium Oxide) 400 Mg Tablet 400 Mg PO BID Lantus Solostar (Insulin Glargine,Hum.rec.anlog) 100 Unit/1 Ml Insuln.pen 28 Unit SQ QHS MERVIN CEE MD January 09, 2017 19:49
[2017-01-10 06:06] VITALS: BP 108/56
[2017-01-10] MEDS: LEVOTHYROXINE 125 MCG TABLET PO SCH (06:07)
[2017-01-10] MEDS: METOPROLOL TART IMMED RELEASE 50 MG TABLET PO SCH ×2 (07:55→19:57)
[2017-01-10] MEDS: CLOPIDOGREL BISULFATE 75 MG TABLET PO SCH (07:55)
[2017-01-10] MEDS: DOCUSATE SODIUM 100 MG CAPSULE PO SCH ×2 (07:56→19:54)
[2017-01-10] MEDS: MAGNESIUM OXIDE 400 MG TABLET PO SCH ×2 (07:56→19:56)
[2017-01-10] MEDS: buPROPion XL 150 MG TAB.ER.24H PO SCH (07:56)
[2017-01-10] MEDS: INSULIN DETEMIR 300 UNITS/3 ML INSULN.PEN. SQ SCH ×2 (08:00→20:02)
[2017-01-10] MEDS: INSULIN ASPART 300 UNITS/3 ML INSULN.PEN SQ SCH ×3 (08:00→16:53)
[2017-01-10] MEDS: PANTOPRAZOLE 40 MG TABLET. PO SCH ×2 (08:04→16:51)
[2017-01-10] MEDS ORDERED: FUROSEMIDE 20 MG TABLET PO SCH (09:00)
[2017-01-10] MEDS: CHOLECALCIFEROL (VITAMIN D3) 1,000 UNIT TABLET PO SCH ×2 (12:03→16:52)
[2017-01-10] MEDS: FERROUS SULFATE 325 MG TABLET PO SCH ×2 (12:03→16:51)
[2017-01-10] MEDS: ASCORBIC ACID 500 MG TABLET PO SCH (16:51)
[2017-01-10 16:53] VITALS: BP 147/81
[2017-01-10] MEDS: MORPHINE ER 15 MG TABLET.ER PO SCH (19:56)
[2017-01-10] MEDS: ATORVASTATIN CALCIUM 20 MG TABLET PO SCH (19:57)
[2017-01-10] MEDS: traZODone 50 MG TABLET. PO SCH (19:58)
--- NOTE | 2017-01-10 20:02 | PDOC ---
Exam Clinton Demential Exam: Clinton Note: Please also refer to the separate dictated note~for this date of service dictated separately.~Patient seen individually. Discussed the patient with Nursing staff reviewed the chart.~Reviewed interim history and current functioning. Reviewed vital signs,~Labs/ Radiology~and current medications noted below. Continue current treatment with the changes noted in the dictated addendum note Assessment: Vital Signs: Vital Signs Date Time Temp Pulse Resp B/P (MAP) Pulse Ox O2 Delivery O2 Flow Rate FiO2 01/10/17 19:57 66 147/81 01/10/17 19:56 16 Room Air 01/10/17 16:53 97.6 94 I&O Intake and Output 01/10/17 07:00 Intake Total 1320 ml Balance 1320 ml Intake Oral 1320 ml Labs: Laboratory Tests Test 01/10/17 07:55 01/10/17 11:30 01/10/17 17:00 Glucose (Fingerstick) 122 mg/dL (70-99) H 202 mg/dL (70-99) H 159 mg/dL (70-99) H Current Medications: Meds: Current Medications Acetaminophen (Tylenol) 650 mg PRN Q6HRS PRN PO MILD PAIN / TEMP; Start at 03:45 Multi-Ingredient Ointment (Analgesic [place]) 1 urmila PRN QID PRN TP MUSCLE PAIN; Start 01/02/17 at 03:45 Al Hydroxide/Mg Hydroxide (Mylanta Plus Xs) 15 ml PRN AFTMEALHC PRN PO DYSPEPSIA; Start 01/02/17 at 03:45 Magnesium Hydroxide (Milk Of Magnesia) 2,400 mg PRN QHS PRN PO CONSTIPATION Last administered on 01/09/17 19:34; Start 01/02/17 at 03:45 Bupropion HCl (Wellbutrin Xl) 150 mg DAILY PO Last administered on 01/10/17 07 :56; Start 01/02/17 at 09:00 Lorazepam (Ativan) 1 mg PRN BID PRN PO ANXIETY / AGITATION Last administered on 01/03/17 02:45; Start 01/02/17 at 03:45; Stop 01/04/17 at 18:14; Status DC Clopidogrel Bisulfate (Plavix) 75 mg DAILY PO Last administered on 01/10/17 07 :55; Start 01/02/17 at 09:00 Docusate Sodium (Colace) 100 mg BID PO Last administered on 01/10/17 19:54; Start 01/02/17 at 09:00 Ferrous Sulfate (Feosol) 325 mg DAILY PO Last administered on 01/08/17 08:12; Start 01/02/17 at 09:00; Stop 01/08/17 at 11:22; Status DC Furosemide (Lasix) 20 mg 3X/WEEK PO Last administered on 01/07/17 08:10; Start 01/03/17 at 09:00; Stop 01/08/17 at 11:00; Status DC Insulin Aspart (Novolog) 12 units TIDAC SQ Last administered on 01/10/17 16:53 ; Start 01/02/17 at 07:30 Levothyroxine Sodium (Synthroid) 100 mcg DAILY06 PO Last administered on 05:19; Start 01/02/17 at 06:00; Stop 01/08/17 at 11:22; Status DC Magnesium Oxide (Magnesium Oxide) 400 mg BID PO Last administered on 01/10/17 19:56; Start 01/02/17 at 09:00 Morphine Sulfate (Ms Contin) 15 mg BID PO Last administered on 01/02/17 10:04 ; Start 01/02/17 at 09:00; Stop 01/02/17 at 18:42; Status DC Nitroglycerin (Nitrostat) 0.4 mg PRN 1X PRN SL CHEST PAIN; Start 01/02/17 at 04 :00 Pantoprazole Sodium (Protonix) 40 mg BIDBFRMEAL PO Last administered on 16:51; Start 01/02/17 at 07:30 Promethazine HCl (Phenergan) 25 mg PRN BID PRN PO NAUSEA/VOMITING Last administered on 01/09/17 08:12; Start 01/02/17 at 04:00 Atorvastatin Calcium (Lipitor) 80 mg QHS PO Last administered on 01/10/17 19: 57; Start 01/02/17 at 21:00 Insulin Detemir (Levemir) 28 units QHS SQ Last administered on 01/09/17 19:35 ; Start 01/02/17 at 21:00 Non-Formulary Medication 1 puff PRN BID PRN INH SHORTNESS OF BREATH; Start at 04:00; Status UNV Non-Formulary Medication 2 puff PRN TID PRN IH SHORTNESS OF BREATH; Start 01/02 at 04:00; Status UNV Metoprolol Tartrate (Lopressor) 50 mg BID PO Last administered on 01/10/17 19: 57; Start 01/02/17 at 09:00 Albuterol/ Ipratropium (Duoneb) 3 ml RTBID NEB Last administered on 01/03/17 11:00; Start 01/02/17 at 08:00; Stop 01/04/17 at 10:21; Status DC Albuterol Sulfate (Ventolin) 2.5 mg PRN Q6HRS PRN NEB SHORTNESS OF BREATH; Start 01/02/17 at 04:00 Morphine Sulfate (Ms Contin) 15 mg HS PO Last administered on 01/10/17 19:56; Start 01/02/17 at 21:00 Clonidine HCl (Catapres) 0.05 mg PRN DAILY PRN PO WITHDRAWAL; Start 01/03/17 at 07:30 Albuterol/ Ipratropium (Duoneb) 3 ml PRN BID PRN NEB WHEEZING; Start 01/04/17 at 10:30 Lorazepam (Ativan) 0.5 mg PRN BID PRN PO ANXIETY / AGITATION Last administered on 01/08/17 17:40; Start 01/04/17 at 18:00 Trazodone HCl (Desyrel) 25 mg QHS PO Last administered on 01/06/17 19:59; Start 01/04/17 at 21:00; Stop 01/07/17 at 18:57; Status DC Trazodone HCl (Desyrel) 50 mg QHS PO Last administered on 01/09/17 19:12; Start 01/07/17 at 21:00 Trazodone HCl (Desyrel) 50 mg PRN 1X PRN PO insomnia; Start 01/07/17 at 19:00 Furosemide (Lasix) 20 mg MoFr PO Last administered on 01/10/17 08:04; Start at 09:00 Ferrous Sulfate (Feosol) 325 mg BIDACLD PO Last administered on 01/10/17 16:51 ; Start 01/08/17 at 11:30 Levothyroxine Sodium (Synthroid) 125 mcg DAILY06 PO Last administered on 06:07; Start 01/09/17 at 06:00 Vitamin D (Vitamin D3) 2,000 unit BIDACLD PO Last administered on 01/10/17 16: 52; Start 01/08/17 at 11:30 Ascorbic Acid (Vitamin C) 500 mg DAILYBFRSUP PO Last administered on 01/10/17 16:51; Start 01/08/17 at 17:00 Insulin Detemir (Levemir) 4 units DAILY08 SQ Last administered on 01/10/17 08: 00; Start 01/09/17 at 08:00 Active Scripts Active Reported Novolog Flexpen (Insulin Aspart) 100 Unit/1 Ml Insuln.pen 12 Unit SQ TIDAC Ativan (Lorazepam) 1 Mg Tablet 1 Mg PO PRN BID PRN Wellbutrin Xl (Bupropion Hcl) 150 Mg Tab.er.24h 150 Mg PO DAILY Promethazine Hcl 25 Mg Tablet 25 Mg PO PRN BID PRN Bystolic (Nebivolol Hcl) 10 Mg Tablet 10 Mg PO DAILY Atorvastatin Calcium 80 Mg Tablet 80 Mg PO QHS Pantoprazole Sodium 40 Mg Tablet.dr 40 Mg PO BIDBFRMEAL Plavix (Clopidogrel Bisulfate) 75 Mg Tablet 75 Mg PO DAILY Levothyroxine Sodium 100 Mcg Tablet 100 Mcg PO DAILY06 Docusate Sodium 100 Mg Capsule 100 Mg PO BID Nitrostat (Nitroglycerin) 0.4 Mg Tab.subl 0.4 Mg SL PRN 1X PRN Ferrous Sulfate 325 Mg Tablet 325 Mg PO DAILY Combivent Respimat Inhal (Ipratropium/Albuterol Sulfate) 4 Gm Aer.w.adap 1 Puff INH PRN BID PRN Xopenex Hfa (Levalbuterol Tartrate) 15 Gm Hfa.aer.ad 2 Puff IH PRN TID PRN Mag-Oxide (Magnesium Oxide) 400 Mg Tablet 400 Mg PO BID Lantus Solostar (Insulin Glargine,Hum.rec.anlog) 100 Unit/1 Ml Insuln.pen 28 Unit SQ QHS MERVIN CEE MD January 10, 2017 20:02
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
--- NOTE | 2017-01-11 04:37 | PN ---
DATE: 01/08/2017 PSYCHIATRIC PROGRESS NOTE This is late entry of 01/08/2017, covers elements not covered in my initial note. SUBJECTIVE: The patient still spends much time in her room, withdrawn, calm, compliant with medications, no psychotic symptoms, suicidal or homicidal ideation. REVIEW OF SYSTEMS: No CV, , pulmonary, eye system symptoms on review. MENTAL STATUS EXAMINATION: Reasonably oriented. Speech coherent. We processed the stressor regarding her granddaughter, abstraction fair, computation impaired. Mood and affect, otherwise stable. LABORATORY DATA: Reviewed. IMPRESSION: Unchanged from initial note, workup for seizures with EEG is awaited per Dr. Rodriguez. PLAN: Continue current psychotropics. I discussed option of adding a mood stabilizer, but patient prefers not to. MAN Pura CEE MD DR: CHASITY/micki JOB#: [id number] / [id number]
--- NOTE | 2017-01-11 04:40 | PN ---
DATE: 01/09/2017 PSYCHIATRIC PROGRESS NOTE This is late entry of 01/09/2017, covers elements not covered in my initial note. SUBJECTIVE: Per nursing report, the patient remains withdrawn, calm, compliant, interactive and pleasant, no psychotic symptoms, suicidal or homicidal ideation. REVIEW OF SYSTEMS: No CV, , pulmonary, eye system symptoms on review. I met with her individually in her room. MENTAL STATUS EXAMINATION: Oriented to herself. Insight, judgment, recent and remote memory, attention, concentration, fund of knowledge is fair, consistent with her diagnosis. Mood appears stable, a little anxious at times. LABORATORY DATA: Reviewed. IMPRESSION: Unchanged from initial note. PLAN: No change from a psychiatric standpoint. MERVIN CEE MD DR: CHASITY/micki JOB#: [id number] / [id number]
[2017-01-11] MEDS: LEVOTHYROXINE 125 MCG TABLET PO SCH (05:03)
[2017-01-11 06:17] VITALS: BP 115/69
[2017-01-11] MEDS: PANTOPRAZOLE 40 MG TABLET. PO SCH ×2 (09:38→17:10)
[2017-01-11] MEDS: DOCUSATE SODIUM 100 MG CAPSULE PO SCH ×2 (09:38→19:47)
[2017-01-11] MEDS: CLOPIDOGREL BISULFATE 75 MG TABLET PO SCH (09:38)
[2017-01-11] MEDS: MAGNESIUM OXIDE 400 MG TABLET PO SCH ×2 (09:38→19:49)
[2017-01-11] MEDS: buPROPion XL 150 MG TAB.ER.24H PO SCH (09:38)
[2017-01-11] MEDS: METOPROLOL TART IMMED RELEASE 50 MG TABLET PO SCH ×2 (09:38→19:48)
[2017-01-11] MEDS: INSULIN ASPART 300 UNITS/3 ML INSULN.PEN SQ SCH ×3 (09:41→17:12)
[2017-01-11] MEDS: INSULIN DETEMIR 300 UNITS/3 ML INSULN.PEN. SQ SCH ×2 (09:41→19:50)
[2017-01-11] MEDS: PROMETHAZINE 25 MG TABLET. PO PRN (10:52)
[2017-01-11] MEDS: FERROUS SULFATE 325 MG TABLET PO SCH ×2 (12:19→17:10)
[2017-01-11] MEDS: CHOLECALCIFEROL (VITAMIN D3) 1,000 UNIT TABLET PO SCH ×2 (12:20→17:10)
[2017-01-11] MEDS ORDERED: INSU100I13 SQ (14:24)
[2017-01-11] MEDS ORDERED: LEVO125T PO (14:32)
[2017-01-11] MEDS ORDERED: LORA0.5T96 PO (14:33)
[2017-01-11] MEDS ORDERED: ACET325T9 PO (14:36)
[2017-01-11] MEDS ORDERED: ASCO500T3 PO (14:38)
[2017-01-11] MEDS ORDERED: CHOL10003 PO (14:39)
[2017-01-11] MEDS ORDERED: MAGN2400 PO (14:40)
[2017-01-11] MEDS ORDERED: MAG30ORA2 PO (14:40)
[2017-01-11] MEDS ORDERED: METH57CR8 TP (14:41)
[2017-01-11] MEDS ORDERED: CLON0.1T PO (14:43)
[2017-01-11] MEDS ORDERED: TRAZ50TA15 PO ×2 (14:44→14:46)
[2017-01-11 16:31] VITALS: BP 119/54
[2017-01-11] MEDS: ASCORBIC ACID 500 MG TABLET PO SCH (17:10)
[2017-01-11] MEDS: traZODone 50 MG TABLET. PO SCH (19:47)
[2017-01-11] MEDS: ATORVASTATIN CALCIUM 20 MG TABLET PO SCH (19:47)
[2017-01-11] MEDS: MORPHINE ER 15 MG TABLET.ER PO SCH (19:49)
--- NOTE | 2017-01-11 21:09 | PDOC ---
Exam Clinton Demential Exam: Clinton Note: Please also refer to the separate dictated note~for this date of service dictated separately.~Patient seen individually. Discussed the patient with Nursing staff reviewed the chart.~Reviewed interim history and current functioning. Reviewed vital signs,~Labs/ Radiology~and current medications noted below. Continue current treatment with the changes noted in the dictated addendum note Assessment: Vital Signs: Vital Signs Date Time Temp Pulse Resp B/P (MAP) Pulse Ox O2 Delivery O2 Flow Rate FiO2 01/11/17 19:49 18 Room Air 01/11/17 19:48 56 119/54 01/11/17 16:31 97.8 94 I&O Intake and Output 01/11/17 07:00 Intake Total 1080 ml Balance 1080 ml Intake Oral 1080 ml Labs: Laboratory Tests Test 01/11/17 07:33 01/11/17 11:29 01/11/17 15:42 01/11/17 19:08 Glucose (Fingerstick) 130 mg/dL (70-99) H 271 mg/dL (70-99) H 170 mg/dL (70-99) H 149 mg/dL (70-99) H Current Medications: Meds: Current Medications Acetaminophen (Tylenol) 650 mg PRN Q6HRS PRN PO MILD PAIN / TEMP; Start at 03:45 Multi-Ingredient Ointment (Analgesic [place]) 1 oneal PRN QID PRN TP MUSCLE PAIN; Start 01/02/17 at 03:45 Al Hydroxide/Mg Hydroxide (Mylanta Plus Xs) 15 ml PRN AFTMEALHC PRN PO DYSPEPSIA; Start 01/02/17 at 03:45 Magnesium Hydroxide (Milk Of Magnesia) 2,400 mg PRN QHS PRN PO CONSTIPATION Last administered on 01/09/17 19:34; Start 01/02/17 at 03:45 Bupropion HCl (Wellbutrin Xl) 150 mg DAILY PO Last administered on 01/11/17 09 :38; Start 01/02/17 at 09:00 Lorazepam (Ativan) 1 mg PRN BID PRN PO ANXIETY / AGITATION Last administered on 01/03/17 02:45; Start 01/02/17 at 03:45; Stop 01/04/17 at 18:14; Status DC Clopidogrel Bisulfate (Plavix) 75 mg DAILY PO Last administered on 01/11/17 09 :38; Start 01/02/17 at 09:00 Docusate Sodium (Colace) 100 mg BID PO Last administered on 01/11/17 19:47; Start 01/02/17 at 09:00 Ferrous Sulfate (Feosol) 325 mg DAILY PO Last administered on 01/08/17 08:12; Start 01/02/17 at 09:00; Stop 01/08/17 at 11:22; Status DC Furosemide (Lasix) 20 mg 3X/WEEK PO Last administered on 01/07/17 08:10; Start 01/03/17 at 09:00; Stop 01/08/17 at 11:00; Status DC Insulin Aspart (Novolog) 12 units TIDAC SQ Last administered on 01/11/17 17:12 ; Start 01/02/17 at 07:30 Levothyroxine Sodium (Synthroid) 100 mcg DAILY06 PO Last administered on 05:19; Start 01/02/17 at 06:00; Stop 01/08/17 at 11:22; Status DC Magnesium Oxide (Magnesium Oxide) 400 mg BID PO Last administered on 01/11/17 19:49; Start 01/02/17 at 09:00 Morphine Sulfate (Ms Contin) 15 mg BID PO Last administered on 01/02/17 10:04 ; Start 01/02/17 at 09:00; Stop 01/02/17 at 18:42; Status DC Nitroglycerin (Nitrostat) 0.4 mg PRN 1X PRN SL CHEST PAIN; Start 01/02/17 at 04 :00 Pantoprazole Sodium (Protonix) 40 mg BIDBFRMEAL PO Last administered on 17:10; Start 01/02/17 at 07:30 Promethazine HCl (Phenergan) 25 mg PRN BID PRN PO NAUSEA/VOMITING Last administered on 01/11/17 10:52; Start 01/02/17 at 04:00 Atorvastatin Calcium (Lipitor) 80 mg QHS PO Last administered on 01/11/17 19: 47; Start 01/02/17 at 21:00 Insulin Detemir (Levemir) 28 units QHS SQ Last administered on 01/11/17 19:50 ; Start 01/02/17 at 21:00 Non-Formulary Medication 1 puff PRN BID PRN INH SHORTNESS OF BREATH; Start at 04:00; Status UNV Non-Formulary Medication 2 puff PRN TID PRN IH SHORTNESS OF BREATH; Start 01/02 at 04:00; Status UNV Metoprolol Tartrate (Lopressor) 50 mg BID PO Last administered on 01/11/17 09: 38; Start 01/02/17 at 09:00 Albuterol/ Ipratropium (Duoneb) 3 ml RTBID NEB Last administered on 01/03/17 11:00; Start 01/02/17 at 08:00; Stop 01/04/17 at 10:21; Status DC Albuterol Sulfate (Ventolin) 2.5 mg PRN Q6HRS PRN NEB SHORTNESS OF BREATH; Start 01/02/17 at 04:00 Morphine Sulfate (Ms Contin) 15 mg HS PO Last administered on 01/11/17 19:49; Start 01/02/17 at 21:00 Clonidine HCl (Catapres) 0.05 mg PRN DAILY PRN PO WITHDRAWAL; Start 01/03/17 at 07:30 Albuterol/ Ipratropium (Duoneb) 3 ml PRN BID PRN NEB WHEEZING; Start 01/04/17 at 10:30 Lorazepam (Ativan) 0.5 mg PRN BID PRN PO ANXIETY / AGITATION Last administered on 01/08/17 17:40; Start 01/04/17 at 18:00 Trazodone HCl (Desyrel) 25 mg QHS PO Last administered on 01/06/17 19:59; Start 01/04/17 at 21:00; Stop 01/07/17 at 18:57; Status DC Trazodone HCl (Desyrel) 50 mg QHS PO Last administered on 01/11/17 19:47; Start 01/07/17 at 21:00 Trazodone HCl (Desyrel) 50 mg PRN 1X PRN PO insomnia; Start 01/07/17 at 19:00 Furosemide (Lasix) 20 mg MoFr PO Last administered on 01/10/17 08:04; Start at 09:00 Ferrous Sulfate (Feosol) 325 mg BIDACLD PO Last administered on 01/11/17 17:10 ; Start 01/08/17 at 11:30 Levothyroxine Sodium (Synthroid) 125 mcg DAILY06 PO Last administered on 05:03; Start 01/09/17 at 06:00 Vitamin D (Vitamin D3) 2,000 unit BIDACLD PO Last administered on 01/11/17 17: 10; Start 01/08/17 at 11:30 Ascorbic Acid (Vitamin C) 500 mg DAILYBFRSUP PO Last administered on 01/11/17 17:10; Start 01/08/17 at 17:00 Insulin Detemir (Levemir) 4 units DAILY08 SQ Last administered on 01/11/17 09: 41; Start 01/09/17 at 08:00 Active Scripts Active Reported Trazodone Hcl 50 Mg Tablet 1 Tab PO QHS Clonidine Hcl 0.1 Mg Tablet 0.05 Mg PO PRN DAILY PRN [place] Ultra Strength Crm (Methyl Salicylate/Menth/Camph) 57 Gm Cream..g. 1 Oneal TP PRN QID PRN Milk Of Magnesia (Magnesium Hydroxide) 2,400 Mg/10 Ml Oral.susp 2,400 Mg PO PRN QHS PRN Mag-Al Plus Xs Suspension (Mag Hydrox/Al Hydrox/Simeth) 30 Ml Oral.susp 15 Ml PO PRN AFTMEALHC PRN Vitamin D3 (Cholecalciferol (Vitamin D3)) 1,000 Unit Tablet 2 Tab PO BIDACLD Ascorbic Acid 500 Mg Tablet 500 Mg PO DAILYBFRSUP Tylenol (Acetaminophen) 325 Mg Tablet 650 Mg PO PRN Q6HRS PRN Ativan (Lorazepam) 0.5 Mg Tablet 0.5 Mg PO PRN BID PRN Synthroid (Levothyroxine Sodium) 125 Mcg Tablet 1 Tab PO DAILY Lantus Solostar (Insulin Glargine,Hum.rec.anlog) 100 Unit/1 Ml Insuln.pen 4 Unit SQ DAILY08 Morphine Sulfate Er (Morphine Sulfate) 15 Mg Tablet.er 15 Mg PO BID Lasix (Furosemide) 20 Mg Tablet 20 Mg PO 3X/WEEK Lantus Solostar (Insulin Glargine,Hum.rec.anlog) 100 Unit/1 Ml Insuln.pen 28 Unit SQ QHS Novolog Flexpen (Insulin Aspart) 100 Unit/1 Ml Insuln.pen 12 Unit SQ TIDAC Ativan (Lorazepam) 1 Mg Tablet 1 Mg PO PRN BID PRN Wellbutrin Xl (Bupropion Hcl) 150 Mg Tab.er.24h 150 Mg PO DAILY Promethazine Hcl 25 Mg Tablet 25 Mg PO PRN BID PRN Bystolic (Nebivolol Hcl) 10 Mg Tablet 10 Mg PO DAILY Atorvastatin Calcium 80 Mg Tablet 80 Mg PO QHS Pantoprazole Sodium 40 Mg Tablet.dr 40 Mg PO BIDBFRMEAL Plavix (Clopidogrel Bisulfate) 75 Mg Tablet 75 Mg PO DAILY Levothyroxine Sodium 100 Mcg Tablet 100 Mcg PO DAILY06 Docusate Sodium 100 Mg Capsule 100 Mg PO BID Nitrostat (Nitroglycerin) 0.4 Mg Tab.subl 0.4 Mg SL PRN 1X PRN Ferrous Sulfate 325 Mg Tablet 325 Mg PO DAILY Combivent Respimat Inhal (Ipratropium/Albuterol Sulfate) 4 Gm Aer.w.adap 1 Puff INH PRN BID PRN Xopenex Hfa (Levalbuterol Tartrate) 15 Gm Hfa.aer.ad 2 Puff IH PRN TID PRN Mag-Oxide (Magnesium Oxide) 400 Mg Tablet 400 Mg PO BID MERVIN CEE MD January 11, 2017 21:09
[2017-01-12] MEDS: LEVOTHYROXINE 125 MCG TABLET PO SCH (05:33)
[2017-01-12 06:18] VITALS: BP 125/73
[2017-01-12] MEDS ORDERED: CHOL50003 PO (07:38)
[2017-01-12] MEDS: PANTOPRAZOLE 40 MG TABLET. PO SCH (08:01)
[2017-01-12] MEDS: MAGNESIUM OXIDE 400 MG TABLET PO SCH (08:01)
[2017-01-12] MEDS: DOCUSATE SODIUM 100 MG CAPSULE PO SCH (08:01)
[2017-01-12] MEDS: buPROPion XL 150 MG TAB.ER.24H PO SCH (08:01)
[2017-01-12] MEDS: CLOPIDOGREL BISULFATE 75 MG TABLET PO SCH (08:01)
[2017-01-12 08:02] VITALS: BP 125/73
[2017-01-12] MEDS: METOPROLOL TART IMMED RELEASE 50 MG TABLET PO SCH (08:02)
[2017-01-12] MEDS: INSULIN ASPART 300 UNITS/3 ML INSULN.PEN SQ SCH (08:06)
[2017-01-12] MEDS: INSULIN DETEMIR 300 UNITS/3 ML INSULN.PEN. SQ SCH (08:07)
--- NOTE | 2017-01-12 08:41 | PN ---
DATE: 01/10/2017 PSYCHIATRIC PROGRESS NOTE This is late entry of 01/10/2017, covers elements not covered in my initial note. SUBJECTIVE: Overall, per nursing report, the patient has been withdrawn, spends much time in her room. She is well oriented, continuously reads a novel as was evident when I met with her in her room. Overall, she was proud of her haircut, talked about this at length, quite animated, verbal. REVIEW OF SYSTEMS: No CV, , pulmonary, eye, ENT system symptoms on review. Reliability is fair. MENTAL STATUS EXAMINATION: Well oriented. Speech coherent. Mood and affect appears stable. LABORATORY DATA: Reviewed. IMPRESSION: Unchanged from initial note. PLAN: No change from a psychiatric standpoint, maintain Ativan 0.5 b.i.d. p.r.n., Wellbutrin XL 150 mg a day, clonidine for narcotic withdrawal p.r.n., trazodone, unchanged. EEG scheduled for 01/11/2017. We will defer to Dr. Rodriguez. MERVIN CEE MD DR: CHASITY/micki JOB#: [id number] / [id number]
--- NOTE | 2017-01-12 10:05 | EEG ---
DATE OF SERVICE: Electroencephalogram HISTORY: This is a 61-year-old right-handed white female who was referred for an EEG to rule out central nervous system pathology or seizure. The patient has had a longstanding history of seizure for approximately 10 years. 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 The patient had more seizure after she underwent coronary artery bypass graft in 2012. Lately, she described recurrent spells of staring. The spells usually lasted 1 or 2 minutes. The patient would recall the events. She denies any postictal confusion, disorientation, bowel or bladder incontinence or tongue biting. EEG DESCRIPTION: This digital 18-channel EEG was performed using the standard international 10-20 electrode placement system. Photic stimulation and hyperventilation were used as an activation procedure. The patient was not sleep deprived. The patient was not sedated. The EEG obtained with the patient in the awake state characterized by posterior dominant rhythm of 8-9 cycles per second with an amplitude of 25-35 microvolts. It was bilaterally symmetric without attenuation with eye opening. The background shows frequent movement and muscle artifacts. Photic stimulation produced no driving responses and hyperventilation indicated no changes in the background activities. The patient had intermittent spells of generalized slowing of theta activity at a frequency of 6-7 cycles per second seen during the drowsy records. IMPRESSION: This is a normal waking and drowsy EEG. No epileptiform activities were seen. The lack of epileptiform discharges does not always rule out seizure, therefore clinical correlation is advised. M Jenny LEDESMA MD DR: MISHA/micki JOB#: [id number] / [id number]
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
--- NOTE | 2017-01-13 03:10 | PN ---
DATE: 01/08/2017 SUBJECTIVE: The patient denies any new medical or neurological complaints. She has not had any recurrent seizure since admission. She denies headaches, visual disturbances, nausea, vomiting, chest pain, shortness of breath or palpitations. OBJECTIVE: GENERAL: Well-developed, well-nourished white female, not in acute distress. VITAL SIGNS: Blood pressure 142/57, respiratory rate 20, pulse is 56, temperature is 97.9, oxygen saturation 98% on room air. HEENT: Normocephalic, atraumatic, otherwise unremarkable. NECK: Supple. Negative for carotid bruit, lymphadenopathy or thyromegaly. LUNGS: Clear to A and P. CARDIOVASCULAR: Regular rate and rhythm, normal S1, S2. There is no S3, S4 or murmur. ABDOMEN: Soft. Bowel sounds positive. EXTREMITIES: Negative for cyanosis, clubbing or pitting edema. NEUROLOGIC: Mental Status: The patient is alert and oriented x 3. Speech is fluent. There is no language dysfunction. Memory, judgment, and abstract thinkings are intact. The patient denies hallucination or delusion. Cranial nerves are intact. Motor Examination: No focal muscle bulk was seen. The tone is normal. The strength is 5/5 throughout. Sensory examination revealed normal pinprick, light touch, vibratory and position senses. Deep tendon reflexes are symmetric and active with absent Achilles responses. Gait and coordination are normal. IMPRESSION: 1. Longstanding history of a seizure disorder, the last seizure disorder described as grand mal type seizures with aggravation of a seizure after having coronary artery bypass graft, and currently the patient would have intermittent spell described as "staring spells." The patient has not had any spells since admission. 2. Multiple medical problems include coronary artery disease, status post coronary artery bypass graft, hypertension, diabetes mellitus, hyperlipidemia, and gastroesophageal reflux disease. 3. Multiple psychiatric problems including major depressions, anxiety, and possible early dementia. 4. Intermittent encephalopathy, no recurrence since admission, probably due to excessive sedation or side effects of morphine. RECOMMENDATIONS: 1. Await for an EEG. 2. Continue with current medical and psychiatric care. 3. Avoid excessive use of narcotics or sedative agents. M Jenny LEDESMA MD DR: MISHA/micki JOB#: [id number] / [id number]
--- NOTE | 2017-01-13 04:10 | PN ---
DATE: 01/12/2017 SUBJECTIVE: The patient denies any new medical or neurological complaints. She has not had any seizures since admission. The patient denies headaches, visual disturbances, weakness, numbness or paresthesia. OBJECTIVE: GENERAL: Well-developed, well-nourished white female, not in acute distress. VITAL SIGNS: Blood pressure 132/58, respiratory rate 20, pulse is 71, temperature 97.8, oxygen saturation 94% on room air. HEENT: Normocephalic, atraumatic; otherwise, unremarkable. NECK: Supple. Negative for carotid bruit, lymphadenopathy or thyromegaly. LUNGS: Clear to A and P. CARDIOVASCULAR: Regular rate and rhythm, normal S1, S2. ABDOMEN: Soft. Bowel sounds positive. EXTREMITIES: Negative for cyanosis, clubbing or pitting edema. NEUROLOGICAL: Mental Status: The patient is alert and oriented x 3. The speech is fluent. There is no language dysfunction. Cranial nerves are intact. Motor Examination: No focal muscle bulk was seen. The tone is normal. The strength is 5/5 throughout. Sensory Examination: Revealed normal pinprick, light touch, vibratory and position senses. Deep tendon reflexes were symmetric and active with absent Achilles responses. Gait and coordination are normal. IMPRESSION: 1. History of seizure disorder, etiology uncertain with increased frequency of seizure after having a coronary artery bypass graft and intermittent staring spells. 2. Multiple medical problems include hypertension, diabetes mellitus, hypothyroidism, gastroesophageal reflux disease. 3. Multiple psychiatric problems include anxiety, major depressions and behavior disturbances and possible early dementia. 4. Increased confusion and disorientations. RECOMMENDATIONS: 1. Await for EEG. 2. Avoid excessive sedation and usage of narcotic. 3. Continue with current medical and psychiatric care. M Jenny LEDESMA MD DR: IMSHA/micki JOB#: [id number] / [id number]
--- NOTE | 2017-01-13 07:03 | PN ---
DATE: 01/12/2017 SUBJECTIVE: The patient denies any new medical or neurological complaints. She denies headaches, visual disturbances, nausea, vomiting, chest pain, shortness of breath or palpitation. The patient has not had any recurrent seizure since admission. OBJECTIVE: GENERAL: Well-developed, well-nourished white female, not in acute distress. VITAL SIGNS: Blood pressure is 125/73, respiratory rate 18, pulse is 56, temperature 98, oxygen saturation 95% on room air. HEENT: Normocephalic, atraumatic; otherwise, unremarkable. NECK: Supple. Negative for carotid bruit, lymphadenopathy or thyromegaly. LUNGS: Clear to A and P. CARDIOVASCULAR: Regular rate and rhythm, normal S1, S2. ABDOMEN: Soft. Bowel sounds positive. EXTREMITIES: Negative for cyanosis, clubbing or pitting edema. NEUROLOGICAL EXAM: Mental Status: The patient is alert and oriented x 3. Speech is fluent. There is no language dysfunction. The patient recalls 2/3 immediately and after 1 and 3 minutes. Judgment and abstract thinking are fair. The patient denies hallucination or delusion. Cranial nerves are intact. Motor Examination: No focal muscle bulk was seen. The tone is normal. The strength is 5/5 throughout. Sensory Examination: Revealed normal pinprick and light touch, vibratory and position senses. Deep tendon reflexes are symmetric and active with absent Achilles responses. Gait and coordination are normal. IMPRESSION: 1. History of seizure disorder with recent normal electroencephalogram and negative for seizure activities. 2. Multiple medical problems include coronary artery disease, status post coronary artery bypass graft, hypertension, hyperlipidemia, diabetes mellitus and gastroesophageal reflux disease01/13/2017. 3. Multiple psychiatric problems include anxiety, major depression and possible early dementia. RECOMMENDATIONS: 1. Continue with current medical and psychiatric care. 2. The patient does not need anticonvulsant at this time. 3. Avoid excessive sedation and narcotic use. M Jenny LEDESMA MD DR: MISHA/micki JOB#: [id number] / [id number]
--- NOTE | 2017-01-13 08:24 | PN ---
DATE: 01/11/2017 PSYCHIATRIC PROGRESS NOTE This is a late entry of 01/11/2017, covers elements not covered in my initial note. SUBJECTIVE: The patient remains withdrawn, spends much time in her room, slept 4-1/2 hours previous night, did have her EEG, but complained of migraine headache during the procedure. REVIEW OF SYSTEMS: No CV, , pulmonary, eye, ENT system symptoms on review. MENTAL STATUS EXAM: Reasonably oriented. Speech is coherent, abstraction fair, abstraction fair, computation fair, language function intact. Mood and affect appears stable. No suicidal or homicidal ideation. LABORATORY DATA: Reviewed. IMPRESSION: Unchanged from initial note. PLAN: Continue current psychotropics. Possible transition to outpatient treatment on 01/12/2017. MAN Pura CEE MD DR: CHASITY/micki JOB#: [id number] / [id number]
--- NOTE | 2017-01-14 23:45 | DS ---
DATE OF DISCHARGE: 01/12/2017 DISCHARGE SUMMARY/PSYCHIATRIC PROGRESS NOTE This is a late entry for 01/12/2017, cover covers elements not covered in my initial note. REASON FOR ADMISSION: Please refer to the admission history for details. Briefly, the patient is a 61-year-old female referred to us from [facility] Emergency Room where she presented with increased confusion, delusions, hallucinations, having difficulty tracking after the patient ambulated into her living room naked and mumbling incoherently. She does have a history of overuse of narcotics and there is a question whether this was contributing to her mental status changes. The patient's behavior was deemed unsafe at home and referred for inpatient psychiatric stabilization. SIGNIFICANT FINDINGS AND CLINICAL COURSE: Following admission, the patient was seen daily individually by myself, followed medically per Dr. Castro/Dr. Blankenship. She also saw Dr. Rodriguez for Neurology consult for possible seizure disorder and had an EEG as part of this process. From a psychiatric standpoint, her narcotics were reduced from 15 mg twice a day down to 15 mg once a day, clonidine used for symptoms of narcotic withdrawal, but she did not have significant withdrawal symptoms and tolerated the lower dosage. She remained on Ativan 0.5 mg b.i.d. p.r.n., Wellbutrin-XL 150 mg a day, trazodone 25 mg at bedtime p.r.n., may repeat x 1 for insomnia. Gradually, her mood stabilized. She was quite isolative, spends much time in her room reading books on [place]. No psychotic symptoms, suicidal or homicidal ideation prior to discharge. MENTAL STATUS EXAM: Reasonably oriented. Speech coherent, abstraction fair, computation reasonable, mood and affect stable at discharge. No suicidal or homicidal ideation. FINAL DIAGNOSES: Major depressive disorder in partial remission; anxiety disorder, unspecified; opiate withdrawal, stabilized. The patient does have a family history of bipolar disorder and this should be assessed as an outpatient to see if any of her symptoms might qualify for consideration of this diagnosis. At this stage; however, due to her opioid withdrawal, this was deferred till a later date as an outpatient. Rest diagnoses unchanged from admission. DISCHARGE MEDICATIONS: Please refer to the MRAD. DISCHARGE INSTRUCTIONS: Outpatient psychiatric and medical followup as arranged closer to her home. MAN Pura CEE MD DR: Amilcar JOB#: [id number] / [id number]
== END 2017-01-12 09:30 | disposition home or self-care (01) | DRG 885 ==
LOC: GEROPSY 02:51
PROVIDERS: ADMIT Psychiatry & Neurology Psychiatry; ATTEND Psychiatry & Neurology Psychiatry
PROC: 4A10X4Z Monitoring of Central Nervous Electrical Activity, External Approach (ICD-10-PCS; principal; 2017-01-02)
DX: F33.9 Major depressive disorder, recurrent, unspecified (principal); E43 Unspecified severe protein-calorie malnutrition; G93.40 Encephalopathy, unspecified; F11.23 Opioid dependence with withdrawal; F03.91 Unspecified dementia, unspecified severity, with behavioral disturbance; F05 Delirium due to known physiological condition; D50.9 Iron deficiency anemia, unspecified; E03.9 Hypothyroidism, unspecified; E11.42 Type 2 diabetes mellitus with diabetic polyneuropathy; E78.5 Hyperlipidemia, unspecified; F22 Delusional disorders; F41.9 Anxiety disorder, unspecified; G40.409 Other generalized epilepsy and epileptic syndromes, not intractable, without status epilepticus; G47.00 Insomnia, unspecified; I10 Essential (primary) hypertension; I25.10 Atherosclerotic heart disease of native coronary artery without angina pectoris; I25.2 Old myocardial infarction; K21.9 Gastro-esophageal reflux disease without esophagitis; M19.90 Unspecified osteoarthritis, unspecified site; M79.7 Fibromyalgia; N28.9 Disorder of kidney and ureter, unspecified; Z66 Do not resuscitate; Z87.891 Personal history of nicotine dependence; Z95.1 Presence of aortocoronary bypass graft; Z88.1 Allergy status to other antibiotic agents; Z91.041 Radiographic dye allergy status; Z91.040 Latex allergy status; Z91.013 Allergy to seafood; Z88.8 Allergy status to other drugs, medicaments and biological substances; Z91.048 Other nonmedicinal substance allergy status; Z90.89 Acquired absence of other organs; Z90.49 Acquired absence of other specified parts of digestive tract; Z90.710 Acquired absence of both cervix and uterus
CPT/HCPCS: 36415; 80048; 80053; 80061; 81001; 82306; 82607; 82947; 83036; 83540; 83550; 83735; 84436; 84443; 84480; 85007; 85027; 86592; 86593; 87086; 94640; 95816; 99406; G0481; J1815; J7620; Q0169; 97530